=== PATIENT | female | born 1990 | race Caucasian/White ===

== ENCOUNTER 2018-12-21 10:16 | Emergency (ER) | payer OTHER, MEDICAID, SELFPAY ==
[2018-12-21 10:24] VITALS: BP 110/76; PULSE 70; RESP 18; TEMP 36.9; O2SAT 100; BMI 24.3
--- NOTE | 2018-12-21 11:47 | ED_ITS ---
HPI - Dizziness General Chief Complaint: Dizziness Stated Complaint: head spinning last night Time Seen by Provider: 12/21/18 10:34 Source: patient Mode of arrival: ambulatory Limitations: no limitations History of Present Illness HPI Narrative: Patient comes [facility] department complaining of dizziness, which she clarifies to be a spinning, moving sensation, which started last week. Patient states that she 1st noticed it when she was staying at a hotel last week, and got up to a standing position after having been laying on the bed. She states she felt as though she was spinning and that it took a few minutes for the sensation a calm down. However, patient was able to get around without difficulty after that. Every time she would do a sudden movement, though, she would have a spinning sensation again. After couple of days, the symptoms seem to get better, but yesterday, she was bending down to picking tech her dog's water dish, when she stood, she suddenly felt the same spinning sensation. Patient states she felt a little nauseated but did not vomit. She denies recent head injury. No fevers or chills. No visual changes or other neurologic deficits. No headache currently, the patient does note she had a headache a couple of days ago. Prior to last week, the patient denies ever having had any sort of issues with vertigo. She states she is otherwise healthy. No history of diabetes or thyroid issues. No cardiac issues. Patient does not use any substances. No medications. No recent vomiting or diarrhea. No recent viral syndrome of any kind. No other complaints at this time. Patient states she is not currently dizzy sitting in the bed, but that if she tries to move herself up into a s itting position suddenly, it will cause dizziness. Related Data Previous Rx's Medication Instructions Recorded meclizine 25 mg PO TID PRN #21 tab 12/21/18 Allergies Allergy/AdvReac Type Severity Reaction Status Date / Time latex Allergy Verified 12/21/18 10:57 Penicillins Allergy Verified 12/21/18 10:57 Review of Systems Review of Systems ROS Unobtainable: All systems reviewed & are unremarkable except as noted in HPI and below Constitutional Constitutional: Denies chills, Denies fatigue, Denies fever(s), Denies frequent falls, Denies lethargy and Denies weakness Eyes Eyes: Denies change in vision, Denies eye discharge, Denies irritation and Denies loss of vision ENT Ears, Nose, Mouth, and Throat: Denies change in voice, Reports vertigo, Reports dizziness, Denies neck pain, Denies sore throat and Denies throat swelling Cardiovascular Cardiovascular: Denies chest pain, Denies irregular heart rhythm, Denies lightheadedness, Denies palpitations, Denies dyspnea, Denies dyspnea on exertion and Denies orthopnea Respiratory Respiratory: Denies cough, Denies dyspnea, Denies dyspnea on exertion and Denies wheezing Gastrointestinal Gastrointestinal: Denies abdominal pain, Denies change in bowel habits, Denies diarrhea, Denies nausea and Denies vomiting Genitourinary Genitourinary: Denies hematuria, Denies flank pain, Denies urinary incontinence and Denies urinary urgency Musculoskeletal Musculoskeletal: Denies back pain, Denies muscle weakness, Denies neck pain, Denies numbness and Denies tingling Integumentary/Breasts Skin/Breast: Denies pruritus, Denies erythema, Denies rash and Denies wounds Neurologic Neurologic: Denies behavioral changes, Denies confusion, Reports vertigo, Reports dizziness, Denies frequent falls, Denies loss of vision, Denies numb ness, Denies tingling and Denies weakness Psychiatric Psychiatric: Denies anxiety, Denies behavioral changes, Denies confusion, Denies depression, Denies homicidal ideation and Denies suicidal ideation Endocrine Endocrine: Denies fatigue, Denies flushing and Denies palpitations Hematologic/Lymphatic Hematologic/Lymphatic: Denies easy bruising Allergic/Immunologic Allergic/Immunologic: Denies urticaria, Denies throat swelling and Denies whee zing [facility] Medical History Healthy adult (Acute) Surgical History No pertinent past surgical history (Acute) Social History Smoking Status: Never smoker Social History Smoking Status: Never smoker Exam Initial Vital Signs Initial Vital Signs: Vital Signs Temperature 98.5 F 12/21/18 10:24 Pulse Rate 70 12/21/18 10:24 Respiratory Rate 18 12/21/18 10:24 Blood Pressure 110/76 12/21/18 10:24 Pulse Oximetry 100 12/21/18 10:24 Const General: cooperative and well developed Nutritional Appearance: well nourished Orientation: alert, awake, oriented x3 and not confused [facility] Head: normocephalic and atraumatic Ears: external ears normal and TM's normal bilaterally Nose: external nose normal and No nasal discharge Face and sinus: sinuses nontender, face symmetric, no sinus tenderness and No dry mucous membranes Mouth: oral mucosae normal and moist mucous membranes Teeth and gingiva: dentition normal Throat: tonsils normal and uvula midline Eyes General: appearance normal, both eyes and all related structures Eyelids: eyelids normal Conjunctivae: conjunctivae normal Sclera: sclerae normal Pupils: PERRL EOM: EOM intact bilaterally Neck Neck: normal visual inspection, trachea midline, No lymphadenopathy, No midline deformity and No JVD Lymphatic: No lymphedema Chest Chest: normal inspection of the chest Resp Effort & Inspection: normal respiratory effort, able to speak in complete sentences, no respiratory distress and no use of accessory muscles Auscultation: clear to auscultation bilaterally, no rales, no rhonchi and no wheezes Cardio Rate: regular rate Rhythm: regular rhythm Heart Sounds: no click, no gallops, no murmurs and no rubs Pulses: normal peripheral pulses GI Inspection: non-distended Palpation: soft, no hepatosplenomegaly, No guarding, No pulsatile mass and No tender Auscultation: normal bowel sounds Back/Spine/Pelvis Back: No CVA tenderness Cervical Spine: cervical ROM normal and No pain with cervical ROM Thoracic/Lumbar Spine: thoracic and lumbar spine normal to inspection Skin General: no rashes or lesions noted, No jaundice and No petechiae Neuro General: alert, oriented x3, gait normal and no focal motor deficits Speech: speech normal Extrem General: full ROM, no clubbing, cyanosis or edema, no pedal edema and no calf tenderness Psych Appearance: well kempt Mental Status: mental status grossly normal Attitude: cooperative Thought Content: normal and suicidality Judgment: judgment good Course Course Course Narrative: Patient was able to ambulate to the bathroom on her own with out assistance. She had driven to the emergency department, so she could not be given the dose of meclizine that I wished to give her here. She was worked up with laboratory studies, which were found to be unremarkable. I did not feel head CT was indicated at this time, as the patient seemed to have clear-cut peripheral vertigo. I have discussed the potential causes of vertigo with the patient, as well as the treatment. I expect this to be a self-limited condition, but if the patient's symptoms continue for more than a week, she should follow up with her primary care physician. We have discussed the usual indications for return. I will give her prescription for meclizine as an outpatient Orders Ordered: Discontinued Medications Meclizine HCl (Antivert) 50 mg PO NOW ONE Stop: 12/21/18 11:47 Last Admin: 12/21/18 12:22 Dose: Not Given Documented by: SCANAPO Vital Signs Vital signs: Vital Signs - 8 hr 12/21/18 10:24 Temperature 98.5 F Pulse Rate 70 Respiratory Rate 18 Blood Pressure 110/76 Pulse Oximetry 100 MDM - Dizziness Medical Records Attestation: I reviewed the patient's medical records. Lab Data Attestation: I reviewed the patient's lab results. Result diagrams: 12/21/18 12:13 12/21/18 12:13 Labs: Lab Results 12/21/18 12/21/18 Range/Units 12:13 12:13 WBC 5.7 (4.5-11.0) X10^3/uL RBC 4.06 (4.0-5.2) X10^6/uL Hgb 12.0 (12.0-16.0) g/dL Hct 36.0 (36-46) % MCV 88.8 (80-100) fL MCH 29.6 (26-34) PG MCHC 33.3 (30-36) % RDW 14.1 (11.6-14.8) % Plt Count 396 (150-400) X10^3/uL Neut % (Auto) 60.4 (50-75) % Lymph % (Auto) 27.6 (25-40) % [place] % (Auto) 9.2 (3-14) % Eos % (Auto) 2.1 (2-4) % Baso % (Auto) 0.7 (0-2) % Neut # (Auto) 3400 (1086-7147) /uL Lymph # (Auto) 1600 (9617-0918) /uL [place] # (Auto) 500 (0-900) /uL Eos # (Auto) 100 (0-450) /uL Baso # (Auto) 0 (0-100) /uL Sodium 139 (137-145) mmol/L Potassium 4.2 (3.4-5.1) mmol/L Chloride 103 (98-107) mmol/L Carbon Dioxide 28 (22-32) mmol/L BUN 10 (7-17) mg/dL Creatinine 0.50 L (0.52-1.04) mg/dL Estimated GFR > 60.0 (>60) mL/min BUN/Creatinine Ratio 20.0 (6-22) Glucose 97 (70-100) mg/dL Calcium 9.3 (8.4-10.2) mg/dL Total Bilirubin 0.9 (0.2-1.3) mg/dL AST 25 (14-36) IU/L ALT 12 (9-52) IU/L Alkaline Phosphatase 41 (38-126) U/L Total Protein 7.2 (6.3-8.2) g/dL Albumin 4.3 (3.5-5.0) g/dL Globulin 2.9 (1.7-4.1) g/dL Albumin/Globulin Ratio 1.5 (1.0-2.8) ECG Data Attestation: I personally reviewed and interpreted this ECG as follows: (See below) Interpretation: Twelve lead EKG performed December 21, 2018 at 10:25 a.m., as follows: Regular ventricular rhythm with a rate of 61 beats per minute CO interval 154 milliseconds QRS duration 87 millisecond QTC interval [address] T wave changes No ectopy Interpretation: Normal sinus rhythm; no signs of acute ischemia; normal EKG as interpreted by EDMD. Discharge Plan Departure Patient Disposition: Home Clinical Impression: Benign paroxysmal positional vertigo Qualifiers: Laterality: unspecified laterality Qualified Code(s): H81.10 - Benign paroxysmal vertigo, unspecified ear Discharge Date/Time: 12/21/18 13:31 Instructions: DI for Vertigo Activity Restrictions/Additional Instructions: Your labs look good. Your symptoms do not indicate a source of her vertigo whchastity h is in the brain. Most likely, your symptoms are coming from the nerves of the inner ear. Most of the time, these symptoms are self-limited, and will go away on their own. Please take the medication for vertigo, as needed, and drink plenty of fluids. Please follow up with your primary care physician, as needed. Prescriptions: New meclizine 25 mg tablet 25 mg PO TID PRN (Reason: dizziness) Qty: 21 RF: 0 Referrals: [facility] [Provider Group] Stand Alone Forms: Work Release Note
[2018-12-21 12:22] LABS: Add Manual Diff / Slide Review NO; Basophils Absolute Auto 0 /uL (0-100); Basophils Percent Auto 0.7 % (0-2); Eosinophils Absolute Auto 100 /uL (0-450); Eosinophils Percent Auto 2.1 % (2-4); Lymphocytes Absolute Auto 1600 /uL (1100-4500); Lymphocytes Percent Auto 27.6 % (25-40); Mean Corpuscular HGB Conc 33.3 % (30-36); Mean Corpuscular Hemoglobin 29.6 PG (26-34); Mean Corpuscular Volume 88.8 fL (80-100); Monocytes Absolute Auto 500 /uL (0-900); Monocytes Percent Auto 9.2 % (3-14); Neutrophils Absolute Auto 3400 /uL (1500-7000); Neutrophils Percent Auto 60.4 % (50-75); Platelet Count 396 X10^3/uL (150-400); Red Blood Cell Count 4.06 X10^6/uL (4.0-5.2); Red Cell Distribution Width 14.1 % (11.6-14.8); White Blood Cell Count 5.7 X10^3/uL (4.5-11.0)
[2018-12-21 12:24] VITALS: BP 107/68; PULSE 61; RESP 17; O2SAT 100
[2018-12-21 12:30] LABS: Alanine Aminotransferase 12 IU/L (9-52); Albumin 4.3 g/dL (3.5-5.0); Albumin Globulin Ratio 1.5 (1.0-2.8); Alkaline Phosphatase 41 U/L (38-126); Aspartate Aminotransferase 25 IU/L (14-36); Bilirubin Total 0.9 mg/dL (0.2-1.3); Blood Urea Nitrogen 10 mg/dL (7-17); Calcium 9.3 mg/dL (8.4-10.2); Carbon Dioxide 28 mmol/L (22-32); Chloride 103 mmol/L (98-107); Estimated Glomerular Filt Rate > 60.0 mL/min (>60); Globulin 2.9 g/dL (1.7-4.1); Glucose 97 mg/dL (70-100); HEMOLYSIS < 15 (0-50); Potassium 4.2 mmol/L (3.4-5.1); Sodium 139 mmol/L (137-145); Total Protein 7.2 g/dL (6.3-8.2)
== END 2018-12-21 13:31 | disposition home or self-care (01) ==
PROVIDERS: Emergency Provider Emergency Medicine
DX: H81.10 Benign paroxysmal vertigo, unspecified ear (principal)
CPT/HCPCS: 36415; 80053; 85025; 93005; 93010; 99282; 99284

== ENCOUNTER 2020-08-06 23:10 | Observation (INO) | payer OTHER, MEDICAID, SELFPAY ==
--- NOTE | 2020-08-06 23:13 | ED.ABDPAIN ---
HPI - Abdominal Pain General Chief Complaint: Headache Stated Complaint: right lower abd pain, nausea, dizzy short of breat Time Seen by Provider: 08/06/20 23:12 Source: patient and family Mode of arrival: Ambulatory Limitations: no limitations History of Present Illness HPI narrative: 29-year-old female fully immunized, nonsmoker with noncontributory medical history presents with her mother and a chief complaint of gradually worsening, severe right lower quadrant pain over the course of the day. She was in her normal state of health earlier in the day and since about noon she has had increasing abdominal pain which has settled in the right lower quadrant and seems to radiate up to her right flank. Her pain is significantly worse with any motion or bumps in the road when driving in. She is nauseated but denies any vomiting. She denies headache, sore throat, chest pain or trouble breathing. She denies any dysuria, frequency or urgency. She denies vaginal bleeding or discharge. She has never had any similar symptoms MD complaint: abdominal pain Onset (ago): hour(s) Pain Consistency: constant Location: RLQ Severity: severe Severity scale (1-10): 10 Quality: cramping, stabbing and aching Radiation: R flank Relieving factors: rest Exacerbating factors: movement Associated symptoms: nausea Related Data Previous Rx's Medication Instructions Recorded meclizine 25 mg PO TID PRN #21 tab 12/21/18 Allergies Allergy/AdvReac Type Severity Reaction Status Date / Time latex Allergy Verified 12/21/18 10:57 Penicillins Allergy Verified 12/21/18 10:57 Review of Systems Constitutional Constitutional: Denies chills, Denies fatigue, Denies fever(s), Denies frequent falls, Denies lethargy and Denies weakness Eyes Eyes: Denies change in vision, Denies eye discharge, Denies irritation and Denies loss of vision ENT Ears, Nose, Mouth, and Throat: Denies change in voice, Denies dizziness, Denies neck pain, Denies sore throat and Denies throat swelling Cardiovascular Cardiovascular: Denies chest pain, Denies irregular heart rhythm, Denies lightheadedness, Denies palpitations, Denies dyspnea, Denies dyspnea on exertion and Denies orthopnea Respiratory Respiratory: Denies cough, Denies dyspnea, Denies dyspnea on exertion and Denies wheezing Gastrointestinal Gastrointestinal: Reports abdominal pain, Denies change in bowel habits, Denies diarrhea, Reports nausea and Denies vomiting Musculoskeletal Musculoskeletal: Denies neck pain and Denies numbness Integumentary/Breasts Skin/Breast: Denies pruritus, Denies erythema, Denies rash and Denies wounds Neurologic Neurologic: Denies behavioral changes, Denies confusion, Denies dizziness, Denies frequent falls, Denies loss of vision, Denies numbness and Denies weakness Psychiatric Psychiatric: Denies anxiety, Denies behavioral changes, Denies confusion, Denies depression, Denies homicidal ideation and Denies suicidal ideation Endocrine Endocrine: Denies fatigue, Denies flushing and Denies palpitations Hematologic/Lymphatic Hematologic/Lymphatic: Denies easy bruising Allergic/Immunologic Allergic/Immunologic: Denies urticaria, Denies throat swelling and Denies wheezing Patient History Medical History (Updated 08/07/20 @ 01:50 by Jr Arroyo DO) Healthy adult Surgical History No pertinent past surgical history Social History Smoking Status: Never smoker Smoking Status: Never smoker alcohol intake frequency: 0-2 drinks per day Substance Use Type: does not use Exam Narrative Exam Narrative: GENERAL: [29] year old patient appears stated age. Well-nourished, well-developed patient, in mild distress. Obviously uncomfortable, rubbing her right abdomen, holding an emesis bag HEAD: Atraumatic. Normocephalic. EYES: Pupils equal round and reactive. Extraocular motions intact. No scleral icterus. No injection or drainage. ENT: Nose without bleeding, purulent drainage. Throat without erythema, tonsillar hypertrophy or exudate. Airway patent. NECK: Trachea midline. Non tender CARDIOVASCULAR: Regular rate and rhythm without murmurs, gallops, or rubs. RESPIRATORY: Clear to auscultation. Breath sounds equal bilaterally. No wheezes, rales, or rhonchi. GASTROINTESTINAL: Abdomen soft, severe tenderness to palpation of right lower quadrant, nondistended. Negative Rovsing's EXTREMITIES: No edema or joint tenderness. BACK: Nontender without deformity or crepitance. No flank tenderness. NEURO: AOx3. SKIN: No rash or erythema of visible areas Initial Vital Signs Initial Vital Signs: Vital Signs Temperature 98.7 F 08/06/20 23:24 Pulse Rate 90 08/06/20 23:24 Respiratory Rate 18 08/06/20 23:24 Blood Pressure 118/80 08/06/20 23:24 Pulse Oximetry 100 08/06/20 23:24 Course Orders Ordered: ED Orders 08/06/20 23:19 CT abdomen pelvis w con Stat 08/06/20 23:20 Complete Blood Count AUTO DIFF Stat Comprehensive Metabolic Panel Stat Lipase Stat 08/07/20 00:26 US pelvic complete Stat COVID19 - ADMIT ([facility]ARD/[facility] swab/PCR) Stat 08/07/20 01:23 Hemoglobin and Hematocrit Stat Sodium Chloride (Normal Saline 0.9%) 1,000 mls @ 150 mls/hr IV CONT ESMER Last Admin: 08/07/20 01:36 Dose: 150 mls/hr Documented by: YOMI Discontinued Medications Hydromorphone HCl (Hydromorphone 0.5 Mg Inj) 0.5 mg IV NOW ONE Stop: 08/06/20 23:19 Last Admin: 08/06/20 23:29 Dose: 0.5 mg Documented by: ANNE-MARIE Hydromorphone HCl (Hydromorphone 0.5 Mg Inj) 0.5 mg IV NOW ONE Stop: 08/06/20 23:53 Last Admin: 08/06/20 23:57 Dose: 0.5 mg Documented by: ANNE-MARIE Hydromorphone HCl (Hydromorphone 0.5 Mg Inj) 0.5 mg IV NOW ONE Stop: 08/07/20 00:47 Last Admin: 08/07/20 01:03 Dose: 0.5 mg Documented by: ANNE-MARIE Hydromorphone HCl (Hydromorphone 0.5 Mg Inj) 0.5 mg IV NOW ONE Stop: 08/07/20 01:50 Last Admin: 08/07/20 01:54 Dose: 0.5 mg Documented by: YOMI Hydromorphone HCl (Hydromorphone 0.5 Mg Inj) 0.5 mg IV NOW ONE Stop: 08/07/20 01:50 Sodium Chloride (Normal Saline 0.9%) 1,000 mls @ 1,000 mls/hr IV BOLUS ONE Stop: 08/07/20 00:17 Last Infusion: 04/28/21 01:43 Dose: 0 mls/hr Documented by: Admin: 08/06/20 23:29 Dose: 1,000 mls/hr Documented by: ANNE-MARIE Ondansetron HCl (Ondansetron 4 Mg/2 Ml Inj) 4 mg IV NOW ONE Stop: 08/06/20 23:19 Last Admin: 08/06/20 23:28 Dose: 4 mg Documented by: ANNE-MARIE Consultations Consultation #1: And discussed with on-call gynecology (Dr. Carballo) who request patient be admitted, kept NPO with IV fluids and pain control, likely OR this morning Vital Signs Vital signs: Vital Signs - 8 hr 08/06/20 23:24 Temperature 98.7 F Pulse Rate 90 Respiratory Rate 18 Blood Pressure 118/80 Pulse Oximetry 100 MDM - Abdominal Pain Lab Data Result diagrams: 08/07/20 01:23 08/06/20 23:20 Labs: Lab Results 08/06/20 08/06/20 08/07/20 Range/Units 23:20 23:20 01:23 WBC 15.9 H (4.5-11.0) X10^3/uL RBC 3.84 L (4.0-5.2) X10^6/uL Hgb 11.4 L 10.6 L (12.0-16.0) g/dL Hct 33.5 L 31.9 L (36-46) % MCV 87.4 (80-100) fL MCH 29.6 (26-34) PG MCHC 33.9 (30-36) % RDW 13.5 (11.6-14.8) % Plt Count 413 H (150-400) X10^3/uL Neut % (Auto) 75.3 H (50-75) % Lymph % (Auto) 16.7 L (25-40) % [place] % (Auto) 6.5 (3-14) % Eos % (Auto) 1.0 L (2-4) % Baso % (Auto) 0.5 (0-2) % Neut # (Auto) 28441 H (6679-1996) /uL Lymph # (Auto) 2600 (3882-3452) /uL [place] # (Auto) 1000 H (0-900) /uL Eos # (Auto) 200 (0-450) /uL Baso # (Auto) 100 (0-100) /uL Sodium 139 (137-145) mmol/L Potassium 4.2 (3.4-5.1) mmol/L Chloride 105 (98-107) mmol/L Carbon Dioxide 24 (22-32) mmol/L BUN 10 (7-17) mg/dL Creatinine 0.67 (0.52-1.04) mg/dL Estimated GFR > 60.0 (>60) mL/min BUN/Creatinine Ratio 14.9 (6-22) Glucose 118 H (70-100) mg/dL Calcium 9.3 (8.4-10.2) mg/dL Total Bilirubin 0.3 (0.2-1.3) mg/dL AST 26 (14-36) IU/L ALT 14 (<35) IU/L Alkaline Phosphatase 47 (38-126) U/L Total Protein 7.5 (6.3-8.2) g/dL Albumin 4.5 (3.5-5.0) g/dL Globulin 3.0 (1.7-4.1) g/dL Albumin/Globulin Ratio 1.5 (1.0-2.8) Lipase 96 (23-300) U/L Point of care testing: Point of Care Testing Test Results Negative Urine Dip Bedside Urine Glucose Negative Bedside Urine Bilirubin - Negative Bedside Urine Ketone - Negative Urine Specific [place] 1.015 Bedside Urine Occult Blood - Negative Bedside Urine pH 6 Bedside Urine Protein - Negative Bedside Urine Urobilinogen - Negative Bedside Urine Nitrite - Negative Bedside Urine Leukocytes - Negative Esterase Imaging Data CT scan - abdomen/pelvis: Radiologist's Impression: Heterogeneous mixed density soft tissue abnormalities in the right pelvis with hemorrhagic fluid. Findings may represent hemorrhagic right ovarian cyst US - RECOVERY COORDINATOR: Radiologist's Impression: Enlarged right ovary with complex in brother which is marked mass, possible hemorrhagic cyst with intact arterial and venous spectral Doppler waveforms to rule out a complete ovarian torsion Discharge Plan Departure Patient Disposition: Admitted as Observation Clinical Impression: Hemorrhagic ovarian cyst Admit Date/Time: 08/07/20 01:58 Admit Provider: Stacey Carballo
--- NOTE | 2020-08-06 23:19 | DI.CT.S_ITS ---
PROCEDURE: CT ABDOMEN PELVIS W CON INDICATIONS: severe right lower quadrant pain TECHNIQUE: After the administration of intravenous contrast, 5 mm thick sections acquired from the diaphragm to the symphysis. 5 mm coronal and sagittal reformats were acquired. For radiation dose reduction, the following was used: automated exposure control, adjustment of mA and/or kV according to patient size. COMPARISON: None. FINDINGS: Image quality: Excellent. ABDOMEN: Lung bases: Lung bases are clear. Heart size is normal. Solid organs: Liver is normal in size and enhancement. Gallbladder is normal. Biliary system is non dilated. Pancreas enhances normally. Spleen is normal in size and enhancement. No adrenal nodules. Kidneys demonstrate normal size and enhancement, without hydronephrosis. There are non obstructive right renal calculi. Peritoneum and bowel: Appendix is not identified. Bowel loops demonstrate normal caliber. Possible mild thickening of transverse colon. There is a lfxhn-wa-kitwsgoe amount of free fluid, which is evident around the spleen, inferior margin of liver, the right pericolic gutter and within the cul-de-sac. No free air. Nodes and vessels: No retroperitoneal or mesenteric adenopathy by size criteria. Aorta and inferior vena cava are normal in size. Miscellaneous: No ventral hernias. PELVIS: Genitourinary: There is a 4.6 x 6.4 cm masslike area in the right adnexa which demonstrates heterogeneous enhancement. In the central portion of the right ovary, there is a 1.7 x 2.9 cm cyst with peripheral enhancement. There is a 1.5 cm peripheral enhancing cyst in the left ovary, most likely a corpus luteum. Bladder wall thickness is normal. Miscellaneous: No inguinal hernias or adenopathy. Bones: No suspicious bony lesions. No vertebral body compression fractures. IMPRESSION: 1. Appendix is not identified. No definitive CT findings to suggest acute appendicitis. 2. A 4.6 x 6.4 cm heterogeneous mass-like structure in the right adnexa, which contains a 1.7 x 2.9 cm cyst with peripheral enhancement. It is most likely arising from the right ovary. Differential diagnoses include a complex ovarian cyst, tubo-ovarian abscess, ovarian torsion and ovarian neoplasm. Recommend pelvic ultrasound for further evaluation. 3. There is vujof-id-ehlvdzzt amount of free fluid in the peritoneal cavity. 4. Possible mild thickening of the transverse colon. Differential diagnosis include artifact versus mild colitis. 5. Small nonobstructive right renal calculi. No significant discrepancy with the date night caregiver radiology preliminary report. Dictated by: William Waite M.D. on 08/07/2020 at 8:20 Approved by: William Waite M.D. on 08/07/2020 at 8:47
[2020-08-06 23:24] VITALS: BP 118/80; PULSE 90; RESP 18; TEMP 37.1; O2SAT 100; BMI 25.0
[2020-08-06 23:28] LABS: Add Manual Diff / Slide Review NO; Basophils Absolute Auto 100 /uL (0-100); Basophils Percent Auto 0.5 % (0-2); Eosinophils Absolute Auto 200 /uL (0-450); Hematocrit 33.5 % (36-46); Hemoglobin 11.4 g/dL (12.0-16.0); Lymphocytes Absolute Auto 2600 /uL (1100-4500); Lymphocytes Percent Auto 16.7 % (25-40); Mean Corpuscular HGB Conc 33.9 % (30-36); Mean Corpuscular Hemoglobin 29.6 PG (26-34); Mean Corpuscular Volume 87.4 fL (80-100); Monocytes Absolute Auto 1000 /uL (0-900); Monocytes Percent Auto 6.5 % (3-14); Neutrophils Absolute Auto 12000 /uL (1500-7000); Neutrophils Percent Auto 75.3 % (50-75); Platelet Count 413 X10^3/uL (150-400); Red Blood Cell Count 3.84 X10^6/uL (4.0-5.2); Red Cell Distribution Width 13.5 % (11.6-14.8); White Blood Cell Count 15.9 X10^3/uL (4.5-11.0)
[2020-08-06] MEDS: ONDANSETRON 4 MG/2 ML INJ IV (23:28)
[2020-08-06] MEDS: SODIUM CHLORIDE 0.9% 1,000 ML 1000 ML IV (23:29)
[2020-08-06] MEDS: HYDROMORPHONE 0.5 MG INJ IV ×2 (23:29→23:57)
[2020-08-06 23:36] LABS: Alanine Aminotransferase 14 IU/L (<35); Albumin 4.5 g/dL (3.5-5.0); Albumin Globulin Ratio 1.5 (1.0-2.8); Alkaline Phosphatase 47 U/L (38-126); Aspartate Aminotransferase 26 IU/L (14-36); BUN Creatinine Ratio 14.9 (6-22); Bilirubin Total 0.3 mg/dL (0.2-1.3); Blood Urea Nitrogen 10 mg/dL (7-17); Calcium 9.3 mg/dL (8.4-10.2); Carbon Dioxide 24 mmol/L (22-32); Chloride 105 mmol/L (98-107); Estimated Glomerular Filt Rate > 60.0 mL/min (>60); Glucose 118 mg/dL (70-100); HEMOLYSIS < 15 (0-50); Lipase 96 U/L (23-300); Potassium 4.2 mmol/L (3.4-5.1); Sodium 139 mmol/L (137-145); Total Protein 7.5 g/dL (6.3-8.2)
[2020-08-07] VITALS (15 sets, daily range): BP systolic 96–125; BP diastolic 53–78; PULSE 69–92; RESP 12–20; TEMP 36.2–37.1; O2SAT 95–100; BMI 26.5
--- NOTE | 2020-08-07 00:26 | DI.US.S_ITS ---
PROCEDURE: US PELVIC COMPLETE INDICATIONS: severe RLQ pain, possible hemorrhagic cyst per CT TECHNIQUE: Real-time scanning was performed of the pelvic organs, with image documentation. Additional endovaginal scanning was necessary due to incomplete visualization of the adnexal and endometrial structures by transabdominal scanning. COMPARISON: None. FINDINGS: Uterus: Uterus is normal in size at 10.4 x 5.5 x 7.1 cm. The endometrium measures 1.1 mm in combined thickness. Ovaries: Right ovary measures 7.4 x 4.3 x 5.8 centimeters. There is a 6.5 x 3.3 x 5.7 centimeter complex mass adjacent to the right ovary. There is a 1.8 x 1.5 by 1.6 centimeter thick walled slightly complex right ovarian cyst. Left ovary measures 3.9 x 1.4 x 3.4 centimeters. Left ovary is sonographically normal. Color Doppler evaluation demonstrates normal vascular flow in the ovaries bilaterally. Other: Moderate amount of complex fluid noted in the pelvis. IMPRESSION: 1. Uterus is sonographically normal. 2. Left ovary is sonographically normal. 3. Complex mass noted adjacent to the right ovary with small thick walled right ovarian cyst and moderate amount of complex fluid in the pelvis. Findings likely represent pelvic hematoma/hemorrhage which could be secondary to ruptured hemorrhagic cyst or ectopic . 4. No ovarian torsion. Please note ultrasound cannot exclude intermittent torsion. Findings discussed with Dr. Javier Mejia on August 07, 2020. Patient reportedly had a negative test. Dictated by: Angela Rodriguez MD, PhD on 08/07/2020 at 8:16 Approved by: Angela Rodriguez MD, PhD on 08/07/2020 at 8:34
[2020-08-07] MEDS: HYDROMORPHONE 0.5 MG INJ IV ×5 (01:03→07:10)
[2020-08-07 01:32] LABS: Hematocrit 31.9 % (36-46); Hemoglobin 10.6 g/dL (12.0-16.0)
[2020-08-07] MEDS: SODIUM CHLORIDE 0.9% 1,000 ML 150 ML IV ×2 (01:36→09:03)
[2020-08-07] MEDS: ONDANSETRON 4 MG/2 ML INJ IV ×3 (03:11→07:42)
[2020-08-07 04:22] LABS: COVID19 - ADMIT (NP swab/PCR) Negative (Negative)
[2020-08-07 06:10] LABS: Hematocrit 29.5 % (36-46); Hemoglobin 9.8 g/dL (12.0-16.0)
--- NOTE | 2020-08-07 07:55 | PM.HP.1 ---
History of Present Illness History of Present Illness Date Patient Seen: 08/07/20 Time Patient Seen: 07:55 Chief complaint: right lower abd pain, nausea, dizzy short of breat Narrative: Patient is a 29-year-old 4 para 1 who presented to the emergency department with acute onset of right lower quadrant pain. She was found to have a large cyst on the right ovary with free fluid in the pelvis. Hematocrit dropped from 33-29 in the emergency department. Patient History Medical History (Updated 08/07/20 @ 01:50 by Jr Arroyo DO) Healthy adult Surgical History No pertinent past surgical history Family & Social History Social History: household members children Prior Living Arrangements House Safety & Behavioral: Feels Safe in Current Yes Environment Been Physically Hurt or No Threatened By a Person Suicidal Ideation Description None Suicide Plan Description No Plan Tobacco & Substance use: Smoking Status Never smoker alcohol intake frequency 0-2 drinks per day Substance Use Type does not use Meds Home Medications and Allergies Home Medications Medication Instructions Recorded Confirmed Type meclizine 25 mg PO TID PRN #21 tab 12/21/18 Rx Allergies Allergy/AdvReac Type Severity Reaction Status Date / Time latex Allergy Verified 12/21/18 10:57 Penicillins Allergy Verified 12/21/18 10:57 Exam Vital Signs (past 8 hours): - 08/07/20 01:00 08/07/20 02:05 08/07/20 02:50 Temperature Pulse Rate 76 74 76 Respiratory Rate 18 18 16 Blood Pressure 113/66 110/62 119/68 Pulse Oximetry 98 98 98 08/07/20 03:55 Temperature 97.6 F Pulse Rate 83 Respiratory Rate 18 Blood Pressure 125/68 Pulse Oximetry 99 Oxygen Delivery Method Room Air Narrative Exam Narrative: Generally: Patient lying in bed, tearful, no acute distress Lungs: Clear to auscultation bilaterally Cardiovascular: Regular rate and rhythm Abdomen: Soft and flat. Good bowel sounds in all 4 quadrants. She does have guarding in the right lower quadrant. Extremities: No edema CT and ultrasound show a right ovarian cyst that is ruptured. Objective Labs Result Diagrams: 08/07/20 05:55 08/06/20 23:20 Labs: Laboratory Results - last 24 hr 08/06/20 08/06/20 08/07/20 23:20 23:20 01:23 WBC 15.9 H RBC 3.84 L Hgb 11.4 L 10.6 L Hct 33.5 L 31.9 L MCV 87.4 MCH 29.6 MCHC 33.9 RDW 13.5 Plt Count 413 H Neut % (Auto) 75.3 H Lymph % (Auto) 16.7 L [place] % (Auto) 6.5 Eos % (Auto) 1.0 L Baso % (Auto) 0.5 Neut # (Auto) 11517 H Lymph # (Auto) 2600 [place] # (Auto) 1000 H Eos # (Auto) 200 Baso # (Auto) 100 Sodium 139 Potassium 4.2 Chloride 105 Carbon Dioxide 24 BUN 10 Creatinine 0.67 Estimated GFR > 60.0 BUN/Creatinine Ratio 14.9 Glucose 118 H Calcium 9.3 Total Bilirubin 0.3 AST 26 ALT 14 Alkaline Phosphatase 47 Total Protein 7.5 Albumin 4.5 Globulin 3.0 Albumin/Globulin Ratio 1.5 Lipase 96 Nasal Screen MRSA (PCR) SARS-CoV-2 (PCR) Blood Type Antibody Screen 08/07/20 08/07/20 08/07/20 03:35 04:05 05:55 WBC RBC Hgb 9.8 L Hct 29.5 L MCV MCH MCHC RDW Plt Count Neut % (Auto) Lymph % (Auto) [place] % (Auto) Eos % (Auto) Baso % (Auto) Neut # (Auto) Lymph # (Auto) [place] # (Auto) Eos # (Auto) Baso # (Auto) Sodium Potassium Chloride Carbon Dioxide BUN Creatinine Estimated GFR BUN/Creatinine Ratio Glucose Calcium Total Bilirubin AST ALT Alkaline Phosphatase Total Protein Albumin Globulin Albumin/Globulin Ratio Lipase Nasal Screen MRSA (PCR) Negative for mrsa SARS-CoV-2 (PCR) Negative Blood Type Antibody Screen 08/07/20 05:55 WBC RBC Hgb Hct MCV MCH MCHC RDW Plt Count Neut % (Auto) Lymph % (Auto) [place] % (Auto) Eos % (Auto) Baso % (Auto) Neut # (Auto) Lymph # (Auto) [place] # (Auto) Eos # (Auto) Baso # (Auto) Sodium Potassium Chloride Carbon Dioxide BUN Creatinine Estimated GFR BUN/Creatinine Ratio Glucose Calcium Total Bilirubin AST ALT Alkaline Phosphatase Total Protein Albumin Globulin Albumin/Globulin Ratio Lipase Nasal Screen MRSA (PCR) SARS-CoV-2 (PCR) Blood Type O Positive Antibody Screen Negative Assessment & Plan Assessment & Plan narrative: Assessment: 29-year-old 4 para 1 with a right ovarian cyst that is ruptured Plan: Diagnostic laparoscopy with removal of the cyst and aspiration of blood in the pelvis The risks, benefits, and alternatives to the procedure were explained to the patient. The risks including bleeding, infection, injury to the bowel, bladder, or ureters. She understands these risks and agrees to proceed. A full par Q was held and consent form was signed. COVID-19 COVID-19 status: Negative Result date/Date tested (Pos, Neg/Pending): 08/07/20 Time Spent With Patient Time with patient: 15-24 minutes Quality VTE Deep Vein Thrombosis/Pulmonary Embolism Present on Admission: No
[2020-08-07] MEDS: METOCLOPRAMIDE 10 MG/2 ML INJ IV (08:56)
--- NOTE | 2020-08-07 11:31 | PC.NURSE ---
Addendum entered by Danielle Patel R.N. 08/07/20 13:49: Pt off unit to surgery at 1250. Original Note: Dr. Carballo present at pt bedside at shift change. Gave pt the ok to eat a light snack as long as she stopped eating by 0730. Plan originally was surgery after 1500. Pt ate a piece of toast with a scant amount of peanut butter and had a few sips of liquid. .Pt felt nauseated after eating, PRN Zofran administered. Pt ambulatory to the bathroom independently, but knows to call staff for unplugging IV pump from wall. NS at 150mls/hr running through a patent 18g in the right AC. Pt heart, lung, and bowel sounds within defined limits. Pt voiding with a slight increase in sharp abdominal pain post void and ambulation. Dr. Carballo paged at 0838 for a supplemental antiemetic since pt still feeling nauseated even after PRN Zofran given. Per MD, order a one time dose of Reglan IVP 10mg. Medication given to pt, pt symptoms subsided. Called around 0900 by OR and made aware that pt would be going to surgery at 1300 instead of original late afternoon time. Pt informed of this. Mother of pt at bedside.
--- NOTE | 2020-08-07 12:58 | CM.DANOTE ---
DCP Brief Assessment Patient is a 29 year old female who was admitted on 08/07/20 today for Right lower Abd Pain. Pt has [employer] for insurance and her PCP is not listed. EMR was reviewed. Per IMPLEMENTATION ADVISOR MD, pt with acute hemorratic cyst and surgery scheduled for today at 1300 as her crit was dropping significantly even just in the ER. Per RN, anticipates likely d/c home after surgery if pt remains stable. SW met very briefly bedside with pt and her mother and explained role and pt in pain and trying to sleep and confirm that she lives in [place] and mother is available for assist at d/c and supportive and pt is typically active and independent at baseline. Plan: SW to follow after surgical intervention this afternoon to confirm pt safe and stable for d/c home with mother assist and any further identified discharge planning needs. LUCY Call
[2020-08-07] MEDS: LACTATED RINGERS 1,000 ML 42 ML IV (13:05)
--- NOTE | 2020-08-07 13:23 | PM.PREOP ---
Pre-operative Note COVID-19 COVID-19 status: Negative Result date/Date tested (Pos, Neg/Pending): 08/07/20 Interval Note History & Physical reviewed/Exam performed by Physician: Yes Changes to H&P: No H&P completed within 30 days and has changed as indicated here:: 08/07/20
--- NOTE | 2020-08-07 13:59 | SUR.OPER ---
Lithotomy on padded OR bed, head on pillow, arms padded and tucked bilateral. Legs secured in padded yellow fins stirrups.
[2020-08-07] MEDS: BUPIVACAINE 0.5% W/ EPI (PF) 30 ML VIAL INJ (14:21)
--- NOTE | 2020-08-07 15:10 | PM.GYNOP.1 ---
Operative Date/Time/Diagnoses Date of procedure: 08/07/20 Time of procedure: 15:10 Pre-op diagnosis: Ruptured right ovarian cyst Blood in the pelvis Post-op diagnosis: same Procedure & Clinicians Procedure: Procedures Operation Date: 08/07/20 16:45 Actual Procedures Side Surgeon p Diagnostic Laparoscopy with irrigation and removal of clot Right Stacey Carballo MD Indications: Ruptured right ovarian cyst Free blood in the pelvis Surgeon: Stacey Carballo Anesthesia Type: General and Local Operative Notes Findings: 8 week size anteverted uterus Right ovary with area of rupture, not actively bleeding Normal left tube and ovary, normal right tube Normal liver and gallbladder 300cc of free blood/clot in the pelvis Closure Type: primary Specimen(s): none Applied: catheter (in and out) Estimated blood loss (mL): 5 Blood products transfused: none Procedure in detail: After informed consent was obtained, the patient was taken to the operating room where she was placed in the dorsal supine position. After adequate general endotracheal anesthesia was achieved, she was placed in the dorsal lithotomy position, and prepped and draped in the usual sterile fashion. A time-out was performed. A bivalve speculum was placed into the vagina and the anterior lip of the cervix grasped with a single-tooth tenaculum. Cervical os was sequentially dilated until the Zumi uterine manipulator could pass easily into the endometrial cavity. Single-tooth tenaculum was removed from the anterior lip of the cervix. The bivalve speculum was removed from the vagina. Attention was then turned to the abdomen where 6 cc of 0.5% Marcaine with epinephrine were injected in the umbilical fold. A 5 mm incision was made. The Veress needle was placed into the peritoneal cavity, and its placement confirmed by aspiration and drop test. The abdominal cavity was insufflated with 3.2 L of CO2. The Veress needle was removed, and a 5 mm trocar was placed without difficulty. Initial inspection of the pelvis and abdomen revealed approximately 300 cc of free blood in the pelvis. Two other incisions were made 4 cm lateral to the midline, at the level of the umbilicus. 6 cc of 0.5% Marcaine with epinephrine were injected before 5 mm incisions were made. Two 5 mm trocars were placed under direct visualization. The probe was used to move the bowel out of the way. The Zumi uterine manipulator was used to elevate the uterus. Suction irrigation was performed at the uterine bladder junction and in the posterior cul-de-sac of a large amount of blood. The ovaries were then examined. The right ovary had a small area of a cyst rupture. There was no active bleeding. The tubes were normal bilaterally. The left ovary was normal. The liver and gallbladder were examined and were normal. The appendix could not be visualized. The instruments were removed from the abdomen. The CO2 was allowed to escape. The incisions were repaired with 4-0 Monocryl in a subcuticular fashion. Steri-Strips, and Allevyn dressings were placed. The Zumi uterine manipulator was removed from the uterus. Sponge, lap, and instrument counts were correct x2. The patient tolerated the procedure well, and was taken to PACU in stable condition. Complications: none Post-operative Condition: stable Disposition: PACU Plan for aftercare: Home after recovery
[2020-08-07] MEDS: OXYCODONE/ACETAMINOPHEN 5/325 TABLET 1 TAB PO (15:13)
--- NOTE | 2020-08-07 18:47 | PC.NURSE ---
1735 Pt ready to discharge post-op, she has eaten, voided and is able to ambulate. Discharge instructions discussed with pt and mother, all questions answered. Patient dressed, PIV removed with catheter intact, pt assisted to wheelchair with all of her belongings. Pt taken to private car and assisted into car. No further patient contact at this time
== END 2020-08-07 17:35 | disposition home or self-care (01) ==
LOC: ED 08-07 01:50 → AC 08-07 01:58 → ICU 08-07 03:18
PROVIDERS: Admitting Provider Obstetrics & Gynecology; Emergency Provider Emergency Medicine; Visit Provider Obstetrics & Gynecology
PROC: (CPT 58662; principal; 2020-08-07 16:45)
DX: N83.291 Other ovarian cyst, right side (principal); Z20.822 Contact with and (suspected) exposure to COVID-19
CPT/HCPCS: 49322; 36415; 36592; 74177; 76830; 76856; 80053; 81003; 81025; 83690; 85014; 85018; 85025; 86850; 86900; 86901; 87635; 87797; 93005; 99284; C9803; G0378; J1100; J1170; J1885; J2250; J2405; J2704; J2765; J3010; Q9967

== ENCOUNTER 2020-12-27 08:26 | Emergency (ER) | payer OTHER, MEDICAID, SELFPAY ==
[2020-08-07 04:39] VITALS: BMI 26.5
[2020-12-27 08:42] VITALS: BP 108/69; PULSE 81; RESP 16; TEMP 36.9; O2SAT 100; BMI 25.0
--- NOTE | 2020-12-27 08:44 | DI.RAD.S_ITS ---
PROCEDURE: XR CHEST 2V INDICATIONS: COVID + SOB and chest tightness TECHNIQUE: 2 views of the chest were acquired. COMPARISON: None. FINDINGS: Surgical changes and devices: None. Lungs and pleura: Lungs are clear. No pleural effusions or pneumothorax. Mediastinum: Mediastinal contours are normal. Heart size is normal. Bones and chest wall: No suspicious bony abnormalities. Soft tissues appear unremarkable. IMPRESSION: No acute cardiopulmonary abnormality. Dictated by: Soham Tee M.D. on 12/27/2020 at 8:09 Approved by: Soham Tee M.D. on 12/27/2020 at 8:10
[2020-12-27 09:03] LABS: COVID19 -Nasal RAPID POSITIVE (Negative)
--- NOTE | 2020-12-27 09:11 | PC.NURSE ---
started feeling Ill on Wednesday had a home COVID test yesterday with positive results. Patient reports chest tightness, pain radiating into mid back. Headache with minimal relief from OTC. Unvaccinated
--- NOTE | 2020-12-27 09:22 | PC.NURSE ---
call centre supervisor back requesting medication for back pain, Dr Glaser aware. Tylenol ordered for pain
--- NOTE | 2020-12-27 09:24 | ED.URI ---
HPI - URI/Sore Throat General Chief Complaint: Upper Respiratory Symptoms Stated Complaint: poss covid, at home test positive Time Seen by Provider: 12/27/20 09:11 Source: patient Mode of arrival: Family Vehicle Limitations: no limitations History of Present Illness HPI Narrative: This is a 29-year-old unvaccinated female comes emergency department with concern for COVID infection. She took a home test which was positive. Patient has had 3 days of symptoms. She has generalized muscle body aches particularly in her back. She has felt generally unwell. She has had a nonproductive cough. She has had some nausea and vomiting. She denies any diarrhea. She denies any abdominal pain. She denies any active shortness of breath at this time. Patient is not any rashes or skin changes. No swelling in her extremities. She denies any medical issues. She denies any major surgeries. She has allergies to antibiotics. No tobacco, alcohol or illicit drugs. Related Data Previous Rx's Medication Instructions Recorded meclizine 25 mg tablet 25 mg PO TID PRN #21 tab 12/21/18 Allergies Allergy/AdvReac Type Severity Reaction Status Date / Time amoxicillin Allergy Intermediate Hives Verified 08/26/20 16:07 Sulfa (Sulfonamide Allergy Intermediate Hive Verified 08/26/20 16:07 Antibiotics) latex Allergy Verified 08/26/20 16:07 Penicillins Allergy Verified 08/26/20 16:07 Review of Systems Review of Systems ROS Unobtainable: All systems reviewed & are unremarkable except as noted in HPI and below Patient History Medical History Healthy adult Surgical History No pertinent past surgical history Social History household members: children Smoking Status: Never smoker alcohol intake: never Smoking Status: Never smoker alcohol intake frequency: holidays/special occasions only Substance Use Type: does not use Exam Narrative Exam Narrative: GENERAL: Alert and oriented x three, female in mild distress. HEENT: Head normocephalic, atraumatic, EOMI, pupils reactive, face symmetric NECK: Supple, full range of motion CARDIOVASCULAR: Regular rate and rhythm without murmurs, rubs or gallops. RESPIRATORY: Breath sounds equal bilaterally, no wheezes rales or rhonchi. ABDOMEN: Soft, nontender. Normoactive bowel sounds all 4 quadrants. No guarding or rebound, rigidity, no mass : No CVA tenderness EXTREMITIES: Normal range of motion, no clubbing or edema. Neurovascularly intact NEUROLOGICAL: Cranial nerves II through XII grossly intact. Moving all extremities. Normal gait. SKIN: Warm, dry, no petechiae, no rashes or lesions. Initial Vital Signs Initial Vital Signs: Vital Signs Temperature 98.4 F 12/27/20 08:42 Pulse Rate 81 12/27/20 08:42 Respiratory Rate 16 12/27/20 08:42 Blood Pressure 108/69 12/27/20 08:42 Pulse Oximetry 100 12/27/20 08:42 Course Orders Ordered: Discontinued Medications Acetaminophen (Acetaminophen 325 Mg Tablet) 975 mg PO NOW ONE Stop: 12/27/20 09:23 Last Admin: 12/27/20 09:27 Dose: 975 mg Documented by: FELIX Vital Signs Vital signs: Vital Signs - 8 hr 12/27/20 08:42 Temperature 98.4 F Pulse Rate 81 Respiratory Rate 16 Blood Pressure 108/69 Pulse Oximetry 100 MDM - URI/Sore Throat Lab Data Labs: Lab Results 12/27/20 Range/Units 08:44 SARS-CoV-2 (PCR) Positive H (Negative) Imaging Data Chest x-ray: Radiologist's Impression: Salina King??29??F??1990 ? Allergy/Adv: amoxicillin, Sulfa (Sulfonamide Antibiotics), latex, Penicillins (More??) Close Chest X-Ray (Signed) Soham Tee - 12/27/20 Pelvis Ultrasound (Signed) Angela Rodriguez - 08/07/20 Abdomen/Pelvis CT (Signed) Reginaldo Waite - 08/06/20 Launch?[address] [address] XRay Report Signed Patient: Salina King MR#: [id number] : 1990 Acct:[id number] Age/Sex: 29 / F Date of Service: 12/27/20 Loc: ED Accession Number: [id number] ?? Procedure: XR chest 2V Ordering Provider: Simran Glaser D.O. PROCEDURE:? XR CHEST 2V ? INDICATIONS:? COVID + SOB and chest tightness ? TECHNIQUE:? 2 views of the chest were acquired.? ? COMPARISON:? None. ? FINDINGS:? ? Surgical changes and devices:? None.? ? Lungs and pleura:? Lungs are clear.? No pleural effusions or pneumothorax.? ? Mediastinum:? Mediastinal contours are normal.? Heart size is normal.? ? Bones and chest wall:? No suspicious bony abnormalities.? Soft tissues appear unremarkable.? ? IMPRESSION:? No acute cardiopulmonary abnormality. ? ? Dictated by: Soham Tee M.D. on 12/27/2020 at 8:09 ? ? Approved by: Soham Tee M.D. on 12/27/2020 at 8:10?? MDM Narrative Medical decision making narrative: This is a 29-year-old unvaccinated female with no other high risk factors who is positive for COVID infection with negative chest x-ray and reassuring vitals. Discussed return precautions. She has been taking DayQuil and NyQuil at home which she has found mildly helpful. She defers any prescription for cough medication. We did discuss that after she improves her in her infection and appropriate time frame she could still and would benefit from being vaccinated. Discharge Plan Departure Patient Disposition: Home Clinical Impression: COVID-19 virus infection Instructions: DI for COVID-19 (Suspected or Confirmed ) Activity Restrictions/Additional Instructions: *You have been diagnosed with coronavirus infection. Your chest x-ray today does not show any changes or signs of pneumonia at this time. If you wish you may obtain a pulse oximeter for use at home to monitor. Please return to the ER if your pulse oximeter shows an O2 saturation less than 92%. Please return for passing out, worsening chest pain, shortness of breath, persistent vomiting, black or bloody stools, new swelling in your extremities or other new or concerning symptoms. *What to do: * per recommendations from the CDC and the [facility] Department of Health * stay home except to get medical care. Restrict activities outside your home, except for getting medical care. Do not go to work, school, or public areas. Avoid using public transportation, ride sharing, or taxis. * separate yourself from other people in your home. * call ahead before visiting your doctor * Wear a face mask * Cover your coughs and sneezes * Clean your hands often * Avoid sharing household items * Clean all high-touch services every day * Monitor your symptoms and seek prompt medical attention if your illness is worsening, particularly with difficulty in breathing. Discussed continuing home isolation * for individuals with symptoms who are confirmed or suspected cases of COVID-19 and are directed to care for themselves at home, discontinue home isolation under the following conditions: 1. At least 72 hours have passed since recovery, defined as resolution of fever without the use of fever reducing medications, and improvement in respiratory symptoms (cough, shortness of breath) AND, 2. At least 7 days have passed since symptoms 1st appeared Individuals with laboratory confirmed COVID-19 who have not had any symptoms may discontinue home isolation when at least 7 days have passed since the date of their 1st COVID-19 diagnostic test and have had no subsequent illness Prescriptions: No Action meclizine 25 mg tablet 25 mg PO TID PRN (Reason: dizziness) Qty: 21 RF: 0
[2020-12-27] MEDS: ACETAMINOPHEN 325 MG TABLET 975 MG PO (09:27)
[2020-12-27 09:50] VITALS: BP 121/74; PULSE 80; RESP 18; TEMP 36.9; O2SAT 98
== END 2020-12-27 09:52 | disposition home or self-care (01) ==
PROVIDERS: Emergency Provider Emergency Medicine
DX: U07.1 COVID-19 (principal); R11.2 Nausea with vomiting, unspecified; R06.02 Shortness of breath; R07.9 Chest pain, unspecified
CPT/HCPCS: 71046; 87635; 99283; C9803

== ENCOUNTER 2021-08-17 19:38 | Emergency (ER) | payer OTHER, MEDICAID, SELFPAY ==
[2020-08-07 04:39] VITALS: BMI 26.5
[2021-08-17 19:45] VITALS: BP 125/79; PULSE 87; RESP 18; TEMP 37; O2SAT 98; BMI 26.6
--- NOTE | 2021-08-17 20:49 | ED.GENADULT ---
HPI - General Adult General Chief complaint: Ear Stated complaint: Right side ear infection Time Seen by Provider: 08/17/21 20:16 Source: patient Mode of arrival: Ambulatory History of Present Illness HPI narrative: Patient is here for right-sided ear pain and fullness and decreased hearing in her right ear. She states this been going on for the past couple days. No sinus congestion. No sore throat. No headache. She has had issues with the canals in both of her ears and the skin around her ears for approximately 9 months. She has tried multiple creams and an antifungal medication that was given by her primary doctor. She states that she has never been on any antibiotic ear drops. She states that there has been referral for her to get in to see Dermatology but this has not happened as of this point. Related Data Previous Rx's Medication Instructions Recorded meclizine 25 mg tablet 25 mg PO TID PRN #21 tab 12/21/18 azithromycin 250 mg tablet See Rx Instructions .ROUTE 08/17/21 .COMPLEX #6 tab Allergies Allergy/AdvReac Type Severity Reaction Status Date / Time amoxicillin Allergy Intermediate Hives Verified 08/17/21 19:49 Sulfa (Sulfonamide Allergy Intermediate Hive Verified 08/17/21 19:49 Antibiotics) latex Allergy Verified 08/17/21 19:49 Penicillins Allergy Verified 08/17/21 19:49 Review of Systems Constitutional Constitutional: Denies fever(s) ENT Ears, Nose, Mouth, and Throat: Reports system reviewed and no additional complaints, except as documented and Reports as per HPI Respiratory Respiratory: Reports as per HPI and Reports system reviewed and no additional complaints, except as documented Integumentary/Breasts Skin/Breast: Reports system reviewed and no additional complaints, except as documented Patient History Medical History Healthy adult Surgical History No pertinent past surgical history Social History household members: children Smoking Status: Never smoker alcohol intake: never Smoking Status: Never smoker alcohol intake frequency: holidays/special occasions only Substance Use Type: does not use Exam Initial Vital Signs Initial Vital Signs: Vital Signs Temperature 98.6 F 08/17/21 19:45 Pulse Rate 87 08/17/21 19:45 Respiratory Rate 18 08/17/21 19:45 Blood Pressure 125/79 08/17/21 19:45 Pulse Oximetry 98 08/17/21 19:45 Const General: cooperative and comfortable HENMT Head: normal to inspection and normocephalic Mouth: moist mucous membranes Other HENMT:: The external auditory canal of the left ear is not red but does have some inflammation. The tympanic membrane is unremarkable. The external auditory canal of the right ear is also inflamed and red. Minimal swelling. Some drainage. The tympanic membrane on the right is not erythematous but it is bulging. Resp Effort & Inspection: normal respiratory effort Skin Other: Patient does have crusting and irritation and thickening of the skin surrounding the year specifically behind the ears and on the earlobes. Course Orders Ordered: ED Orders 08/17/21 20:47 Wound Culture and Gram Stain Stat Vital Signs Vital signs: Vital Signs - 8 hr 08/17/21 19:45 Temperature 98.6 F Pulse Rate 87 Respiratory Rate 18 Blood Pressure 125/79 Pulse Oximetry 98 Medical Decision Making [facility] Narrative Medical decision making narrative: The issues that she has been having with her external auditory canals and the skin around her ears as not new. She has been on multiple creams and antifungal medicine. She states some of them have made the symptoms better but then it always comes back. She has never been on any antibiotic drops according to her. She has been seen by her primary doctor for this. If the patient had not been seen by another provider prior to myself I would have diagnosed her with otitis externa and started her on a antibiotic drop. I had a discussion about having multiple physicians trying to make diagnoses and providing medications. The plan will be is to culture the ear. She states she has never had a culture in the past. We were able to get a sample from her right external auditory canal. We will wait on any antibiotics to avoid complicating the situation until this culture results. I also feel that a be helpful for her primary doctor as well. She does have a bulging right tympanic membrane which most likely explains the fullness in the loss of hearing in that right ear. I suspect that this is upper respiratory issue. Had a discussion with her regarding this. The plan will be is to have her take decongestants and nasal sprays for the next couple days to see if this does not improve her symptoms. She was given a prescription for oral antibiotics however she is going to hold on starting this to see if the more conservative decongestant/antihistamines work. She was informed that she should either see ear nose and throat or Dermatology for her issues. She expressed understanding and agreement. Discharge Plan Departure Patient Disposition: Home Clinical Impression: Otitis media Instructions: Middle Ear Infection Activity Restrictions/Additional Instructions: A culture of your right ear was obtained today. We will contact you if we need to start any antibiotic drops. Like we discussed I recommend that you start taking a antihistamine such as Claritin or Meli or Zyrtec. You can purchase these [id number]. The generic version these medications is appropriate. He would also consider taking a nasal spray such as Nasonex or Flonase. You can also purchase these [id number]. The generic versions are appropriate as well. Your given a prescription for antibiotics however I recommend that you start with these decongestant/antihistamines for the next 3-4 days. If your symptoms improve then disregard this prescription. If your symptoms worsen during this time start taking the antibiotics as directed. Prescriptions: New azithromycin 250 mg tablet See Rx Instructions .ROUTE .COMPLEX Qty: 6 0RF Rx Instructions: For 250 mg dose pack: take 500 mg today (day 1), then 250 mg for 4 days (days 2-5) No Action meclizine 25 mg tablet 25 mg PO TID PRN (Reason: dizziness) Qty: 21 0RF
--- NOTE | 2021-08-18 09:45 | PC.NURSE ---
Rhianna called into [facility] for Pt.
== END 2021-08-17 21:06 | disposition home or self-care (01) ==
PROVIDERS: Emergency Provider Emergency Medicine
DX: H66.91 Otitis media, unspecified, right ear (principal)
CPT/HCPCS: 87070; 87075; 87077; 87147; 87186; 87205; 99281; 99282

== ENCOUNTER 2022-05-03 11:52 | Emergency (ER) | payer OTHER, MEDICAID, SELFPAY ==
[2020-08-07 04:39] VITALS: BMI 26.5
[2022-05-03 12:00] VITALS: BP 128/77; PULSE 90; RESP 18; TEMP 37.4; O2SAT 96; BMI 25.8
[2022-05-03 12:56] LABS: Influenza A - CEPHEID Flu A NEGATIVE (NEGATIVE); Influenza B - CEPHEID Flu B NEGATIVE (NEGATIVE); Respiratory Syncytial Virus Negative (Negative)
[2022-05-03 12:58] LABS: COVID-19 CEPHEID 4-PLEX PCR Negative (Negative)
--- NOTE | 2022-05-03 13:53 | PC.NURSE ---
patient has multiple lip ulcers and a sore throat 10 effecting her nutrition
--- NOTE | 2022-05-03 14:38 | ED_ITS ---
HPI - URI/Sore Throat <MARCUS Acuna - Last Filed: 05/03/22 15:08> General Chief Complaint: Upper Respiratory Symptoms Stated Complaint: fever,chills,body aches,hurts to swallow, T-1 Time Seen by Provider: 05/03/22 14:11 Source: patient Mode of arrival: Ambulatory History of Present Illness HPI Narrative: 31-year-old female, nonsmoker, presents to the emergency department with complaints of mouth sores, sore throat, body aches and fever x1 day. T-max of 103?. Patient is concerned about the blisters on her lip and mouth that is making it difficult to eat or drink. Patient reports that she has had cold sores in the past but allows them to heal on their own. Related Data Previous Rx's Medication Instructions Recorded meclizine 25 mg tablet 25 mg PO TID PRN dizziness #21 tabs 12/21/18 azithromycin 250 mg tablet See Rx Instructions PO .COMPLEX #6 08/17/21 tabs azithromycin 250 mg tablet See Rx Instructions PO .COMPLEX 05/03/22 Pharyngitis #6 tabs dexamethasone 0.5 mg/5 mL oral 0.5 mg (5 mL) PO TID Aphthous 05/03/22 solution sores #240 mL Allergies Allergy/AdvReac Type Severity Reaction Status Date / Time amoxicillin Allergy Intermediate Hives Verified 08/17/21 19:49 Sulfa (Sulfonamide Allergy Intermediate Hive Verified 08/17/21 19:49 Antibiotics) latex Allergy Verified 08/17/21 19:49 Penicillins Allergy Verified 08/17/21 19:49 Review of Systems <MARCUS Acuna - Last Filed: 05/03/22 15:08> Review of Systems Narrative: Narrative: See HPI. GENERAL: Denies fatigue and sweats. Endorses fever and chills. HEENT: Denies sinus pain, ear pain, difficulty swallowing, dizziness. Endorses sore throat and mouth sores. RESPIRATORY: Denies dyspnea, cough, wheezing, sputum. CARDIOVASCULAR: Denies chest pain, palpitations, edema. GASTROINTESTINAL: Denies nausea, vomiting, abdominal pain, diarrhea, constipation. : Denies dysuria, frequency, incontinence, hematuria, urinary retention, flank pain. MSK: Denies weakness, joint pain, or bony pain. SKIN: Denies rash or pruritis. Endorses blister-like lesions on lower lip and inside mouth. NEUROLOGIC: Denies weakness, dizziness, headache, numbness, confusion. PSYCHIATRIC: No concerning psychosocial issues. Patient History <MARCUS Acuna - Last Filed: 05/03/22 15:08> Medical History (Updated 05/03/22 @ 15:04 by MARCUS Acuna) Healthy adult Surgical History No pertinent past surgical history Social History household members: children Smoking Status: Never smoker alcohol intake: never Smoking Status: Never smoker alcohol intake frequency: holidays/special occasions only Substance Use Type: does not use Exam <MARCUS Acuna - Last Filed: 05/03/22 15:08> Narrative Exam Narrative: Exam Narrative: GENERAL: This is a well-nourished, well-developed patient, in no acute distress. HEAD: Atraumatic. Normocephalic. EYES: Pupils equal round and reactive. Extraocular motions intact. No scleral icterus, injection or drainage. ENT: Nose without bleeding, purulent drainage. Throat with erythema, tonsillar hypertrophy and exudate. Uvula midline. Airway patent. TMs and canals clear. No sinus tenderness. NECK: Trachea midline. No JVD or lymphadenopathy. Nontender. CARDIOVASCULAR: Regular rate and rhythm without murmurs, peripheral pulses intact, cap refill <2 sec. RESPIRATORY: Breath sounds equal and clear bilaterally. No wheezes, rales, or rhonchi. No witnessed cough. No increased respiratory effort. No accessory muscle use. GASTROINTESTINAL: Abdomen soft, non-tender, nondistended without guarding or rebound. No suprapubic pain. MSK: Moves all extremities. Normal range of motion, no clubbing or edema. Neurovascularly intact. NEURO: A&O x 3. SKIN: Warm, dry, no rashes noted. Vesicular lesions on lower lip and left inside cheek. Initial Vital Signs Initial Vital Signs: Vital Signs Temperature 99.4 F 05/03/22 12:00 Pulse Rate 90 05/03/22 12:00 Respiratory Rate 18 05/03/22 12:00 Blood Pressure 128/77 05/03/22 12:00 Pulse Oximetry 96 05/03/22 12:00 Oxygen Delivery Method 05/03/22 12:00 Reviewed <Simran Glaser DO - Last Filed: 05/03/22 18:41> Initial Vital Signs Initial Vital Signs: Vital Signs Temperature 99.4 F 05/03/22 12:00 Pulse Rate 90 05/03/22 12:00 Respiratory Rate 18 05/03/22 12:00 Blood Pressure 128/77 05/03/22 12:00 Pulse Oximetry 96 05/03/22 12:00 Oxygen Delivery Method 05/03/22 12:00 Course <MARCUS Acuna - Last Filed: 05/03/22 15:08> Orders Ordered: ED Orders 05/03/22 12:09 Throat Culture Stat 05/03/22 12:10 Covid-19 + FLU A/B + RSV - PCR Stat Discontinued Medications Dexamethasone (Dexamethasone 10 Mg/Ml Vial) 10 mg PO NOW ONE Stop: 05/03/22 14:56 Last Admin: 05/03/22 15:05 Dose: 10 mg Documented By: IRA Vital Signs Vital signs: Vital Signs - 8 hr 05/03/22 12:00 05/03/22 15:25 Temperature 99.4 F Pulse Rate 90 96 H Respiratory Rate 18 14 Blood Pressure 128/77 134/73 Pulse Oximetry 96 97 Oxygen Delivery Method Room Air Room Air <Simran Glaser DO - Last Filed: 05/03/22 18:41> Orders Ordered: ED Orders 05/03/22 12:09 Throat Culture Stat 05/03/22 12:10 Covid-19 + FLU A/B + RSV - PCR Stat Discontinued Medications Dexamethasone (Dexamethasone 10 Mg/Ml Vial) 10 mg PO NOW ONE Stop: 05/03/22 14:56 Last Admin: 05/03/22 15:05 Dose: 10 mg Documented By: IRA Vital Signs Vital signs: Vital Signs - 8 hr 05/03/22 12:00 05/03/22 15:25 Temperature 99.4 F Pulse Rate 90 96 H Respiratory Rate 18 14 Blood Pressure 128/77 134/73 Pulse Oximetry 96 97 Oxygen Delivery Method Room Air Room Air MDM - URI/Sore Throat <MARCUS Acuna - Last Filed: 05/03/22 15:08> Differential Diagnosis Differential diagnosis: Likely upper respiratory infection, viral infection and pharyngitis Lab Data Labs: Lab Results 05/03/22 Range/Units 12:10 SARS-CoV-2 (PCR) Negative (Negative) Influenza A (RT-PCR) Flu a negative (NEGATIVE) Influenza B (RT-PCR) Flu b negative (NEGATIVE) RSV (PCR) Negative (Negative) Point of Care Testing Rapid Strep A Negative MDM Narrative Medical decision making narrative: 31 year old female presents to the walk-in clinic with a 24 hour history of sore throat, mouth sores, fever, body aches. Viral panel was negative. Rapid strep was negative. Assessment was consistent with pharyngitis, viral illness and aphthous sores vs HSV 1. Single dose of Decadron provided. Will treat with azithromycin for the pharyngitis, due to amoxicillin allergy. Will provide some dexamethasone swish and spit for the mouth pain so she can eat and drink appropriately. Discussed plan of care and return precautions with patient, who verbalized understanding. <Simran Glaser, DO - Last Filed: 05/03/22 18:41> Lab Data Labs: Lab Results 05/03/22 Range/Units 12:10 SARS-CoV-2 (PCR) Negative (Negative) Influenza A (RT-PCR) Flu a negative (NEGATIVE) Influenza B (RT-PCR) Flu b negative (NEGATIVE) RSV (PCR) Negative (Negative) Point of Care Testing Rapid Strep A Negative Discharge Plan Departure Patient Disposition: Home Clinical Impression: Viral infection, Pharyngitis Instructions: DI for Strep Throat, DI for Viral Upper Respiratory Infection -- Adult Activity Restrictions/Additional Instructions: *You have been diagnosed with pharyngitis and viral illness. Your rapid strep was negative but we will send in a sample for culture and contact you with the results. Due to the severity of her symptoms, will begin treatment with antibiotics. We have given you a single dose of steroids to help with the swelling. I will also prescribe a swish and spit medication that you can use to help with your mouth sores, to control the pain so that you can eat and drink. Please take only as directed and no more than prescribed. If symptoms persist, recommend he be evaluated for herpes simplex 1 in case these sores do not improve. Please follow-up with your family doctor as needed. For any worsening symptoms that include chest pain, shortness of breath or intolerable pain, please return to the emergency department. *What to do: *Please continue to take your regular medications as directed. [x ] New medication prescriptions sent to your pharmacy: [[facility]] [ ] New medication written as a paper prescription [ ] No new medications given *Please follow up with your primary care provider in 2-3 days, call for an appointment. Let them know you were seen in the Emergency Department and that we ask that you be seen in follow up. We will electronically transmit a record of today's note if your PCP is in our system *If you do not have a primary care provider please contact the [facility] Resource line at [phone]. They will ask some questions about your medical history and help get you set up with a doctor in the community. ? Return to ER if you should have any new, worsening or concerning symptoms, such as worsening pain, severe headache, confusion, chest pain, difficulty breathing, fever greater than 101 F, shaking chills, persistent vomiting to the point that you cannot drink fluids, or other new or worsening symptoms. Prescriptions: New azithromycin 250 mg tablet See Rx Instructions .ROUTE .COMPLEX Qty: 6 0RF Rx Instructions: For 250 mg dose pack: take 500 mg today (day 1), then 250 mg for 4 days (days 2-5) dexamethasone 0.5 mg/5 mL solution 0.5 mg PO TID Qty: 240 0RF No Action meclizine 25 mg tablet 25 mg PO TID PRN (Reason: dizziness) Qty: 21 0RF azithromycin 250 mg tablet See Rx Instructions .ROUTE .COMPLEX Qty: 6 0RF Rx Instructions: For 250 mg dose pack: take 500 mg today (day 1), then 250 mg for 4 days (days 2-5) Referrals: Lyudmila Nettles PA-C [Primary Care Provider] - Stand Alone Forms: Patient Portal/API, Work Release Note <Simran Glaser DO - Last Filed: 05/03/22 18:41> Cosign ED Attending Tamikaature Attestation: I was immediately available in the department for consultation. Documentation has been reviewed.
[2022-05-03] MEDS: DEXAMETHASONE 10 MG/ML VIAL PO (15:05)
[2022-05-03 15:25] VITALS: BP 134/73; PULSE 96; RESP 14; O2SAT 97
== END 2022-05-03 15:26 | disposition home or self-care (01) ==
PROVIDERS: Emergency Medicine; Emergency Provider Registered Nurse; PCP Physician Assistant
DX: J02.9 Acute pharyngitis, unspecified (principal); B34.9 Viral infection, unspecified
CPT/HCPCS: 0241U; 87070; 87880; 99283; J1100

== ENCOUNTER 2022-05-04 11:45 | Emergency (ER) | payer OTHER, MEDICAID, SELFPAY ==
[2020-08-07 04:39] VITALS: BMI 26.5
[2022-05-04 12:01] VITALS: PULSE 69; RESP 16; TEMP 36.6; O2SAT 98; BMI 25.8
--- NOTE | 2022-05-04 13:25 | DI.RAD.S_ITS ---
PROCEDURE: XR CHEST 2V INDICATIONS: chest pain TECHNIQUE: 2 views of the chest were acquired. COMPARISON: [facility], CR, XR CHEST 2V, 12/27/2020, 8:41. FINDINGS: Surgical changes and devices: None. Lungs and pleura: Lungs are clear. No pleural effusions or pneumothorax. Mediastinum: Mediastinal contours are normal. Heart size is normal. Bones and chest wall: No suspicious bony abnormalities. Soft tissues appear unremarkable. IMPRESSION: No acute process. Dictated by: Dimple Best M.D. on 05/04/2022 at 14:32 Approved by: Dimple Best M.D. on 05/04/2022 at 14:32
--- NOTE | 2022-05-04 13:27 | ED_ITS ---
HPI - Chest Pain <Briseida Pascual PA-C - Last Filed: 05/04/22 16:30> General Chief Complaint: Chest Pain Stated Complaint: Chest pain Time Seen by Provider: 05/04/22 12:01 History of Present Illness HPI narrative: 31-year-old female with no reported past medical history presents to the ED with 3 days of URI symptoms and chest pain. Patient states that her symptoms started 3 days ago with a fever, cough, sore throat. Patient states that she started experiencing some left-sided chest pain yesterday. Patient states the pain does not radiate. Pain is worse when laying flat. The pain comes and goes and lasts about 6 or 7 minutes at a time. Patient denies history of acid reflux. Patient denies history of early cardiac deaths in the family. Patient denies trouble breathing, vomiting, dysuria, diarrhea, hematochezia, lightheadedness, dizziness, syncope. Related Data Previous Rx's Medication Instructions Recorded meclizine 25 mg tablet 25 mg PO TID PRN dizziness #21 tabs 12/21/18 azithromycin 250 mg tablet See Rx Instructions PO .COMPLEX #6 08/17/21 tabs azithromycin 250 mg tablet See Rx Instructions PO .COMPLEX 05/03/22 Pharyngitis #6 tabs dexamethasone 0.5 mg/5 mL oral 0.5 mg (5 mL) PO TID Aphthous 05/03/22 solution sores #240 mL Allergies Allergy/AdvReac Type Severity Reaction Status Date / Time amoxicillin Allergy Intermediate Hives Verified 05/04/22 12:04 Sulfa (Sulfonamide Allergy Intermediate Hive Verified 05/04/22 12:04 Antibiotics) latex Allergy Verified 05/04/22 12:04 Penicillins Allergy Verified 05/04/22 12:04 Review of Systems <Briseida Pascual PA-C - Last Filed: 05/04/22 16:30> Review of Systems ROS Unobtainable: All systems reviewed & are unremarkable except as noted in HPI and below Constitutional Constitutional: Denies chills, Reports fatigue, Reports fever(s), Denies frequent falls, Denies lethargy and Denies weakness Eyes Eyes: Denies change in vision, Denies eye discharge, Denies irritation and Denies loss of vision ENT Ears, Nose, Mouth, and Throat: Denies change in voice, Denies dizziness, Denies neck pain, Reports sore throat and Denies throat swelling Cardiovascular Cardiovascular: Reports chest pain, Denies irregular heart rhythm, Denies lightheadedness, Denies palpitations, Denies dyspnea, Denies dyspnea on exertion and Denies orthopnea Respiratory Respiratory: Reports cough, Denies dyspnea, Denies dyspnea on exertion and D enies wheezing Gastrointestinal Gastrointestinal: Denies abdominal pain, Denies change in bowel habits, Denies diarrhea, Reports nausea and Denies vomiting Genitourinary Genitourinary: Denies hematuria, Denies flank pain, Denies urinary incontinence and Denies urinary urgency Musculoskeletal Musculoskeletal: Denies back pain, Denies muscle weakness, Denies neck pain, Denies numbness and Denies tingling Integumentary/Breasts Skin/Breast: Denies pruritus, Denies erythema, Denies rash and Denies wounds Neurologic Neurologic: Denies behavioral changes, Denies confusion, Denies dizziness, Denies frequent falls, Denies loss of vision, Denies numbness, Denies tingling and Denies weakness Psychiatric Psychiatric: Denies anxiety, Denies behavioral changes, Denies confusion, Denies depression, Denies homicidal ideation and Denies suicidal ideation Endocrine Endocrine: Reports fatigue, Denies flushing and Denies palpitations Hematologic/Lymphatic Hematologic/Lymphatic: Denies easy bruising Allergic/Immunologic Allergic/Immunologic: Denies urticaria, Denies throat swelling and Denies wheezing Patient History <Briseida Pascual PA-C - Last Filed: 05/04/22 16:30> Medical History (Updated 05/04/22 @ 16:17 by Briseida Pascual PA-C) Healthy adult Surgical History No pertinent past surgical history Social History household members: children Smoking Status: Never smoker alcohol intake: never Smoking Status: Never smoker alcohol intake frequency: holidays/special occasions only Substance Use Type: does not use Exam <Briseida Pascual PA-C - Last Filed: 05/04/22 16:30> Narrative Exam Narrative: Const General:?cooperative, healthy appearing and comfortable [facility] Head:?normal to inspection Ears:?hearing grossly normal bilaterally Nose:?external nose normal Face and sinus:?normal facial exam and sinuses nontender Mouth:?oral mucosae normal Throat:?posterior oropharynx normal Eyes General:?appearance normal, both eyes and all related structures Neck Neck:?normal visual inspection and no lymphadenopathy noted Resp Effort & Inspection:?normal respiratory effort Auscultation:?clear to auscultation bilaterally Cardio Rate:?regular rate Rhythm:?regular rhythm Neuro General:?patient alert, patient awake and patient oriented x3 Initial Vital Signs Initial Vital Signs: Vital Signs Temperature 97.8 F 05/04/22 12:01 Pulse Rate 69 05/04/22 12:01 Respiratory Rate 16 05/04/22 12:01 Pulse Oximetry 98 05/04/22 12:01 Oxygen Delivery Method 05/04/22 12:01 <Kyleigh Schrader DO - Last Filed: 05/07/22 04:02> Initial Vital Signs Initial Vital Signs: Vital Signs Temperature 97.8 F 05/04/22 12:01 Pulse Rate 69 05/04/22 12:01 Respiratory Rate 16 05/04/22 12:01 Pulse Oximetry 98 05/04/22 12:01 Oxygen Delivery Method 05/04/22 12:01 Course <Briseida Pascual PA-C - Last Filed: 05/04/22 16:30> Orders Ordered: Discontinued Medications Al Hydrox/Mg Hydrox/Simethicone 20 ml/ Lidocaine HCl 15 ml 0 ml PO NOW ONE Stop: 05/04/22 13:27 Last Admin: 05/04/22 13:39 Dose: 35 ml Documented By: AMBER Famotidine (Famotidine 20 Mg Tablet) 20 mg PO BID ONE Stop: 05/04/22 13:28 Last Admin: 05/04/22 13:39 Dose: 20 mg Documented By: AMBER Ketorolac Tromethamine (Ketorolac 30 Mg/Ml Vial) 15 mg IV NOW ONE Stop: 05/04/22 15:40 Last Admin: 05/04/22 15:57 Dose: 15 mg Documented By: AMBER Vital Signs Vital signs: Vital Signs - 8 hr 05/04/22 12:01 05/04/22 13:30 Temperature 97.8 F Pulse Rate 69 74 Respiratory Rate 16 20 Blood Pressure 114/75 Pulse Oximetry 98 99 Oxygen Delivery Method Room Air Room Air <Kyleigh Schrader DO - Last Filed: 05/07/22 04:02> Orders Ordered: Discontinued Medications Al Hydrox/Mg Hydrox/Simethicone 20 ml/ Lidocaine HCl 15 ml 0 ml PO NOW ONE Stop: 05/04/22 13:27 Last Admin: 05/04/22 13:39 Dose: 35 ml Documented By: SB Famotidine (Famotidine 20 Mg Tablet) 20 mg PO BID ONE Stop: 05/04/22 13:28 Last Admin: 05/04/22 13:39 Dose: 20 mg Documented By: SB Ketorolac Tromethamine (Ketorolac 30 Mg/Ml Vial) 15 mg IV NOW ONE Stop: 05/04/22 15:40 Last Admin: 05/04/22 15:57 Dose: 15 mg Documented By: SB Vital Signs Vital signs: Vital Signs - 8 hr 05/04/22 12:01 05/04/22 13:30 Temperature 97.8 F Pulse Rate 69 74 Respiratory Rate 16 20 Blood Pressure 114/75 Pulse Oximetry 98 99 Oxygen Delivery Method Room Air Room Air MDM - Chest Pain <Briseida Pascual PA-C - Last Filed: 05/04/22 16:30> Lab Data 05/04/22 13:37 05/04/22 13:37 Labs: Lab Results 05/04/22 05/04/22 05/04/22 Range/Units 13:37 13:37 15:22 WBC 11.4 H (4.5-11.0) X10^3/uL RBC 4.47 (4.0-5.2) X10^6/uL Hgb 12.2 (12.0-16.0) g/dL Hct 37.2 (36-46) % MCV 83.2 (80-100) fL MCH 27.3 (26-34) PG MCHC 32.8 (30-36) % RDW 15.7 H (11.6-14.8) % Plt Count 371 (150-400) X10^3/uL Neut % (Auto) 83.9 H (50-75) % Lymph % (Auto) 8.2 L (25-40) % Stevens % (Auto) 7.7 (3-14) % Eos % (Auto) 0.0 L (2-4) % Baso % (Auto) 0.2 (0-2) % Neut # (Auto) 9500 H (8809-0466) /uL Lymph # (Auto) 900 L (3373-3357) /uL Stevens # (Auto) 900 (0-900) /uL Eos # (Auto) 0 (0-450) /uL Baso # (Auto) 0 (0-100) /uL Sodium 137 (137-145) mmol/L Potassium 4.1 (3.4-5.1) mmol/L Chloride 99 (98-107) mmol/L Carbon Dioxide 25 (22-32) mmol/L BUN 10 (7-17) mg/dL Creatinine 0.54 (0.52-1.04) mg/dL Estimated GFR > 60 (>60) mL/min BUN/Creatinine Ratio 18.5 (6-22) Glucose 95 (70-100) mg/dL Calcium 9.4 (8.4-10.2) mg/dL Total Bilirubin 0.3 (0.2-1.3) mg/dL AST 27 (14-36) IU/L ALT 21 (<35) IU/L Alkaline Phosphatase 60 (38-126) U/L Total Creatine Kinase 41 (30-135) U/L CK-MB (CK-2) TNP CK-MB (CK-2) Rel Index TNP Troponin I < 0.012 (0.01-0.034) ng/mL Total Protein 8.4 H (6.3-8.2) g/dL Albumin 4.6 (3.5-5.0) g/dL Globulin 3.8 (1.7-4.1) g/dL Albumin/Globulin Ratio 1.2 (1.0-2.8) Lipase 130 (23-300) U/L SARS-CoV-2 (PCR) Negative (Negative) Influenza A (RT-PCR) Flu a negative (NEGATIVE) Influenza B (RT-PCR) Flu b negative (NEGATIVE) RSV (PCR) Negative (Negative) MDM Narrative Medical decision making narrative: 31-year-old female with no reported past medical history presents to the ED with 3 days of URI symptoms and chest pain. Concern for viral URI versus pneumonia versus ACS versus acid reflux versus other. Will obtain labs, chest x-ray, EKG. Will trial GI cocktail, Pepcid AC. Will reassess. Workup was unremarkable. EKG, chest x-ray, labs without acute findings. Respiratory panel was negative for COVID, influenza, RSV. Patient's symptoms likely due to a viral infection. ED return precautions were discussed with patient. Patient verbalized understanding. ? Medical records reviewed:??yes Independently reviewed EKG as above: Normal sinus rhythm, no axis deviation, no ST-T changes ? Imaging studies independently reviewed: yes ? Disposition: see below, along with detailed discharge instructions that have been reviewed with patient as well as indications for ED re-evaluation and additional outpatient follow up <Kyleigh Schrader, DO - Last Filed: 05/07/22 04:02> Lab Data Labs: Lab Results 05/04/22 05/04/22 05/04/22 Range/Units 13:37 13:37 15:22 WBC 11.4 H (4.5-11.0) X10^3/uL RBC 4.47 (4.0-5.2) X10^6/uL Hgb 12.2 (12.0-16.0) g/dL Hct 37.2 (36-46) % MCV 83.2 (80-100) fL MCH 27.3 (26-34) PG MCHC 32.8 (30-36) % RDW 15.7 H (11.6-14.8) % Plt Count 371 (150-400) X10^3/uL Neut % (Auto) 83.9 H (50-75) % Lymph % (Auto) 8.2 L (25-40) % Stevens % (Auto) 7.7 (3-14) % Eos % (Auto) 0.0 L (2-4) % Baso % (Auto) 0.2 (0-2) % Neut # (Auto) 9500 H (6286-5266) /uL Lymph # (Auto) 900 L (3254-3864) /uL Stevens # (Auto) 900 (0-900) /uL Eos # (Auto) 0 (0-450) /uL Baso # (Auto) 0 (0-100) /uL Sodium 137 (137-145) mmol/L Potassium 4.1 (3.4-5.1) mmol/L Chloride 99 (98-107) mmol/L Carbon Dioxide 25 (22-32) mmol/L BUN 10 (7-17) mg/dL Creatinine 0.54 (0.52-1.04) mg/dL Estimated GFR > 60 (>60) mL/min BUN/Creatinine Ratio 18.5 (6-22) Glucose 95 (70-100) mg/dL Calcium 9.4 (8.4-10.2) mg/dL Total Bilirubin 0.3 (0.2-1.3) mg/dL AST 27 (14-36) IU/L ALT 21 (<35) IU/L Alkaline Phosphatase 60 (38-126) U/L Total Creatine Kinase 41 (30-135) U/L CK-MB (CK-2) TNP CK-MB (CK-2) Rel Index TNP Troponin I < 0.012 (0.01-0.034) ng/mL Total Protein 8.4 H (6.3-8.2) g/dL Albumin 4.6 (3.5-5.0) g/dL Globulin 3.8 (1.7-4.1) g/dL Albumin/Globulin Ratio 1.2 (1.0-2.8) Lipase 130 (23-300) U/L SARS-CoV-2 (PCR) Negative (Negative) Influenza A (RT-PCR) Flu a negative (NEGATIVE) Influenza B (RT-PCR) Flu b negative (NEGATIVE) RSV (PCR) Negative (Negative) ECG Data Interpretation: [place]-normal sinus rhythm rate 67 NH interval 136 QRS [address] changes or T-wave inversions Discharge Plan Departure Patient Disposition: Home Clinical Impression: Upper respiratory infection Instructions: DI for Viral Upper Respiratory Infection -- Adult Activity Restrictions/Additional Instructions: You were evaluated in the ED today for fever, cough, chest pain. Your chest x- ray, EKG, labs, respiratory panel were all normal. Your symptoms are likely due to a viral infection. You may continue to take Tylenol, ibuprofen, over-the- counter cough medicines for your symptoms. Return to the ED if you have worsening chest pain or you experience shortness of breath. Prescriptions: No Action meclizine 25 mg tablet 25 mg PO TID PRN (Reason: dizziness) Qty: 21 0RF azithromycin 250 mg tablet See Rx Instructions .ROUTE .COMPLEX Qty: 6 0RF Rx Instructions: For 250 mg dose pack: take 500 mg today (day 1), then 250 mg for 4 days (days 2-5) dexamethasone 0.5 mg/5 mL solution 0.5 mg PO TID Qty: 240 0RF azithromycin 250 mg tablet See Rx Instructions .ROUTE .COMPLEX Qty: 6 0RF Rx Instructions: For 250 mg dose pack: take 500 mg today (day 1), then 250 mg for 4 days (days 2-5) Referrals: Lyudmila Nettles PA-C [Primary Care Provider] - Stand Alone Forms: Patient Portal/API, Work Release Note <Kyleigh Schrader DO - Last Filed: 05/07/22 04:02> Cosign ED Attending Cosignature Attestation: I was immediately available in the department for consultation. Documentation has been reviewed.
[2022-05-04 13:30] VITALS: BP 114/75; PULSE 74; RESP 20; O2SAT 99
[2022-05-04] MEDS: FAMOTIDINE 20 MG TABLET PO (13:39)
[2022-05-04] MEDS: MAG HYDROX/ALUMINUM/SIMETH SUS 20 ML, LIDOCAINE VISCOUS 2% 15 ML PO (13:39)
[2022-05-04 13:47] LABS: Add Manual Diff / Slide Review NO; Basophils Absolute Auto 0 /uL (0-100); Basophils Percent Auto 0.2 % (0-2); Eosinophils Absolute Auto 0 /uL (0-450); Hematocrit 37.2 % (36-46); Hemoglobin 12.2 g/dL (12.0-16.0); Lymphocytes Absolute Auto 900 /uL (1100-4500); Lymphocytes Percent Auto 8.2 % (25-40); Mean Corpuscular HGB Conc 32.8 % (30-36); Mean Corpuscular Hemoglobin 27.3 PG (26-34); Mean Corpuscular Volume 83.2 fL (80-100); Monocytes Absolute Auto 900 /uL (0-900); Monocytes Percent Auto 7.7 % (3-14); Neutrophils Absolute Auto 9500 /uL (1500-7000); Neutrophils Percent Auto 83.9 % (50-75); Platelet Count 371 X10^3/uL (150-400); Red Blood Cell Count 4.47 X10^6/uL (4.0-5.2); Red Cell Distribution Width 15.7 % (11.6-14.8); White Blood Cell Count 11.4 X10^3/uL (4.5-11.0)
[2022-05-04 14:04] LABS: Alanine Aminotransferase 21 IU/L (<35); Albumin 4.6 g/dL (3.5-5.0); Albumin Globulin Ratio 1.2 (1.0-2.8); Alkaline Phosphatase 60 U/L (38-126); Aspartate Aminotransferase 27 IU/L (14-36); BUN Creatinine Ratio 18.5 (6-22); Bilirubin Total 0.3 mg/dL (0.2-1.3); Blood Urea Nitrogen 10 mg/dL (7-17); Calcium 9.4 mg/dL (8.4-10.2); Carbon Dioxide 25 mmol/L (22-32); Chloride 99 mmol/L (98-107); Creatine Kinase 41 U/L (30-135); Estimated Glomerular Filt Rate > 60 mL/min (>60); Globulin 3.8 g/dL (1.7-4.1); Glucose 95 mg/dL (70-100); HEMOLYSIS < 15 (0-50); Lipase 130 U/L (23-300); Potassium 4.1 mmol/L (3.4-5.1); Sodium 137 mmol/L (137-145); Total Protein 8.4 g/dL (6.3-8.2)
[2022-05-04 14:15] LABS: Troponin I < 0.012 ng/mL (0.01-0.034)
[2022-05-04] MEDS: KETOROLAC 30 MG/ML VIAL 15 MG IV (15:57)
[2022-05-04 16:06] LABS: Influenza A - CEPHEID Flu A NEGATIVE (NEGATIVE); Influenza B - CEPHEID Flu B NEGATIVE (NEGATIVE); Respiratory Syncytial Virus Negative (Negative)
[2022-05-04 16:08] LABS: COVID-19 CEPHEID 4-PLEX PCR Negative (Negative)
[2022-05-04 16:46] VITALS: BP 116/73; PULSE 75; RESP 16; O2SAT 99
== END 2022-05-04 16:47 | disposition home or self-care (01) ==
PROVIDERS: Emergency Provider Student in an Organized Health Care Education/Training Program; PCP Physician Assistant
DX: J06.9 Acute upper respiratory infection, unspecified (principal); R07.9 Chest pain, unspecified; Z20.822 Contact with and (suspected) exposure to COVID-19
CPT/HCPCS: 0241U; 36415; 71046; 80053; 82550; 83690; 84484; 85025; 93005; 96374; 99284; A9270; J1885

== ENCOUNTER 2022-05-07 15:33 | Emergency (ER) | payer OTHER, MEDICAID, SELFPAY ==
[2020-08-07 04:39] VITALS: BMI 26.5
[2022-05-07 15:43] VITALS: BP 118/71; PULSE 95; RESP 15; TEMP 36.7; O2SAT 97; BMI 25.8
[2022-05-07 16:33] LABS: Ictotest Urine Negative (Negative)
[2022-05-07 16:39] LABS: Bacteria Urine None Seen; RBC Urine 30-100/HPF (0-5/HPF); Squamous Epithelial Cell Urine 1-5 /HPF (0-5/HPF); WBC Urine 5-10/HPF (0-5/HPF)
[2022-05-07 16:40] LABS: Culture Indicated Urine Specimen Cultured
[2022-05-07 19:30] VITALS: BP 122/71; PULSE 85; RESP 18; TEMP 37.3; O2SAT 99
[2022-05-07 20:00] VITALS: BP 117/71; PULSE 87; O2SAT 98
[2022-05-07 20:19] VITALS: PULSE 95; O2SAT 98
--- NOTE | 2022-05-07 20:19 | ED_ITS ---
HPI - General Adult General Chief complaint: Upper Respiratory Symptoms Stated complaint: sore throat, headache, fever, chills, bodyache Time Seen by Provider: 05/07/22 20:01 Source: patient Mode of arrival: Ambulatory Limitations: no limitations History of Present Illness HPI narrative: Patient is a 31-year-old female who is here for evaluation of a sore throat and headache and fevers and chills and body ache. Started having symptoms approximately 1 week ago. Went to the walk-in clinic. Was told that she had strep throat. Was placed on antibiotics. Has completed the course of the antibiotics. Is here because her symptoms have continued. She followed up with the walk-in clinic and they thought that maybe this was a dental infection. She was sent to the emergency department for evaluation. Related Data Previous Rx's Medication Instructions Recorded meclizine 25 mg tablet 25 mg PO TID PRN dizziness #21 tabs 12/21/18 azithromycin 250 mg tablet See Rx Instructions PO .COMPLEX #6 08/17/21 tabs azithromycin 250 mg tablet See Rx Instructions PO .COMPLEX 05/03/22 Pharyngitis #6 tabs dexamethasone 0.5 mg/5 mL oral 0.5 mg (5 mL) PO TID Aphthous 05/03/22 solution sores #240 mL acyclovir 800 mg tablet 800 mg PO BID 5 days #10 tabs 05/07/22 Allergies Allergy/AdvReac Type Severity Reaction Status Date / Time amoxicillin Allergy Intermediate Hives Verified 05/07/22 15:43 Sulfa (Sulfonamide Allergy Intermediate Hive Verified 05/07/22 15:43 Antibiotics) latex Allergy Verified 05/07/22 15:43 Penicillins Allergy Verified 05/07/22 15:43 Review of Systems Constitutional Constitutional: Reports system reviewed and no additional complaints, except as documented ENT Ears, Nose, Mouth, and Throat: Reports system reviewed and no additional complaints, except as documented Integumentary/Breasts Skin/Breast: Reports system reviewed and no additional complaints, except as documented Neurologic Neurologic: Reports system reviewed and no additional complaints, except as documented Patient History Medical History Healthy adult Surgical History No pertinent past surgical history Social History household members: children Smoking Status: Never smoker alcohol intake: never Smoking Status: Never smoker alcohol intake frequency: holidays/special occasions only Substance Use Type: does not use Exam Initial Vital Signs Initial Vital Signs: Vital Signs Temperature 98.1 F 05/07/22 15:43 Pulse Rate 95 H 05/07/22 15:43 Respiratory Rate 15 05/07/22 15:43 Blood Pressure 118/71 05/07/22 15:43 Pulse Oximetry 97 05/07/22 15:43 Oxygen Delivery Method 05/07/22 15:43 Const General: cooperative HENMT Head: normal to inspection Face and sinus: normal facial exam Mouth: other (Vesicular lesions around her mouth.) Teeth and gingiva: fair dentition Throat: other (Vesicular lesions posterior oropharynx) Resp Effort & Inspection: normal respiratory effort Skin General: no rashes or lesions noted Neuro General: patient alert, patient awake and moves all extremities Course Orders Ordered: ED Orders 05/07/22 16:30 Ictotest Urine Stat Urine Culture Stat Urine Microscopic Stat Discontinued Medications Acyclovir (Acyclovir 400 Mg Tablet) 800 mg PO NOW ONE Stop: 05/07/22 20:46 Last Admin: 05/07/22 20:45 Dose: 800 mg Documented By: AT Vital Signs Vital signs: Vital Signs - 8 hr 05/07/22 19:30 05/07/22 20:00 05/07/22 20:19 Temperature 99.1 F Pulse Rate 85 87 95 H Respiratory Rate 18 Blood Pressure 122/71 117/71 Pulse Oximetry 99 98 98 Oxygen Delivery Method Room Air Room Air 05/07/22 20:30 05/07/22 20:30 Temperature Pulse Rate 90 Respiratory Rate 16 Blood Pressure 116/70 Pulse Oximetry 98 Oxygen Delivery Method Room Air Medical Decision Making Differential Diagnosis Differential Diagnosis: Peritonsillar abscess, retropharyngeal abscess, strep throat, thrush, denta Lab Data Lab results reviewed: Yes I reviewed the patient's lab results. Labs: Lab Results 05/07/22 Range/Units 16:30 Ur Bilirubin Confirm Negative (Negative) Urine RBC 30-100/hpf H (0-5/HPF) Urine WBC 5-10/hpf H (0-5/HPF) Ur Squamous Epith Cells 1-5 /hpf (0-5/HPF) Urine Bacteria None seen (None) Ur Culture Indicated? Specimen cultured Point of Care Testing Test Results Negative Urine Dip Bedside Urine Glucose Negative Bedside Urine Bilirubin + 1 Bedside Urine Ketone +++ 80 Urine Specific [place] 1.030 Bedside Urine Occult Blood +++ Bedside Urine pH 6.0 Bedside Urine Protein + 30 Bedside Urine Urobilinogen - Negative Bedside Urine Nitrite - Negative Bedside Urine Leukocytes +/- 15 Esterase Point of care testing: Point of Care Testing Test Results Negative Urine Dip Bedside Urine Glucose Negative Bedside Urine Bilirubin + 1 Bedside Urine Ketone +++ 80 Urine Specific [place] 1.030 Bedside Urine Occult Blood +++ Bedside Urine pH 6.0 Bedside Urine Protein + 30 Bedside Urine Urobilinogen - Negative Bedside Urine Nitrite - Negative Bedside Urine Leukocytes +/- 15 Esterase MDM Narrative Medical decision making narrative: Patient does have lesions around her mouth that are vesicular in origin and have the appearance of herpes infection. Patient does have a history of cold sores. She thought that she did have sores around her mouth when these symptoms started. No respiratory distress. Is well hydrated. Had a long discussion with her regarding the herpes infection. She has had symptoms for approximately 1 week however given the nature of it and the location will start her on acyclovir. She was given a dose here and a prescription was sent to the pharmacy of her choice. She was given return precautions. She expressed understanding and agreement. Discharge Plan Departure Patient Disposition: Home Clinical Impression: Herpes Instructions: DI for Cold Sores Activity Restrictions/Additional Instructions: Take the medications as directed. I do recommend you contact your primary doctor for a follow-up. Return to the emergency department for any new symptoms. Prescriptions: New acyclovir 800 mg tablet 800 mg PO BID 5 Days Qty: 10 0RF No Action meclizine 25 mg tablet 25 mg PO TID PRN (Reason: dizziness) Qty: 21 0RF azithromycin 250 mg tablet See Rx Instructions .ROUTE .COMPLEX Qty: 6 0RF Rx Instructions: For 250 mg dose pack: take 500 mg today (day 1), then 250 mg for 4 days (days 2-5) dexamethasone 0.5 mg/5 mL solution 0.5 mg PO TID Qty: 240 0RF azithromycin 250 mg tablet See Rx Instructions .ROUTE .COMPLEX Qty: 6 0RF Rx Instructions: For 250 mg dose pack: take 500 mg today (day 1), then 250 mg for 4 days (days 2-5) Referrals: Lyudmila Nettles PA-C [Primary Care Provider] - Stand Alone Forms: Patient Portal/API
[2022-05-07 20:30] VITALS: BP 116/70; PULSE 90; RESP 16; O2SAT 98
[2022-05-07] MEDS: ACYCLOVIR 400 MG TABLET 800 MG PO (20:45)
== END 2022-05-07 20:50 | disposition home or self-care (01) ==
PROVIDERS: Emergency Medicine; Emergency Provider Emergency Medicine; PCP Physician Assistant
DX: B00.9 Herpesviral infection, unspecified (principal)
CPT/HCPCS: 81003; 81015; 81025; 87086; 99283

== ENCOUNTER → 2024-05-10 08:17 | Outpatient (CLI) | payer BC, SELFPAY ==
[2020-08-07 04:39] VITALS: BMI 26.5
[2024-05-10 08:57] LABS: Hematocrit 34.2 % (36-46); Mean Corpuscular HGB Conc 32.1 % (30-36); Mean Corpuscular Hemoglobin 26.1 PG (26-34); Mean Corpuscular Volume 81.4 fL (80-100); Platelet Count 450 X10^3/uL (150-400); Red Blood Cell Count 4.21 X10^6/uL (4.0-5.2); Red Cell Distribution Width 16.2 % (11.6-14.8)
[2024-05-10 09:10] LABS: Alanine Aminotransferase 18 IU/L (<35); Albumin 4.7 g/dL (3.5-5.0); Albumin Globulin Ratio 1.8 (1.0-2.8); Alkaline Phosphatase 32 U/L (38-126); Aspartate Aminotransferase 27 IU/L (14-36); BUN Creatinine Ratio 16.7 (6-22); Bilirubin Total 0.3 mg/dL (0.2-1.3); Blood Urea Nitrogen 12 mg/dL (7-17); Calcium 9.4 mg/dL (8.4-10.2); Carbon Dioxide 24 mmol/L (22-32); Chloride 106 mmol/L (98-107); Cholesterol 169 mg/dL (140-199); Estimated Glomerular Filt Rate > 60 mL/min (>60); Globulin 2.6 g/dL (1.7-4.1); Glucose 94 mg/dL (70-100); HDL Cholesterol 74 mg/dL (40-60); HEMOLYSIS < 15 (0-50); LDL Cholesterol Calculated 75 mg/dL (<100); Potassium 4.7 mmol/L (3.4-5.1); Sodium 139 mmol/L (137-145); Total Protein 7.3 g/dL (6.3-8.2); Triglycerides 98 mg/dL (35-150)
== END ==
PROVIDERS: PCP Family Medicine; Referring Provider Family Medicine; Visit Provider Family Medicine
DX: Z13.9 Encounter for screening, unspecified (principal)
CPT/HCPCS: 36415; 80053; 80061; 85027

== ENCOUNTER 2024-07-20 11:39 | Emergency (ER) | payer BC, SELFPAY ==
[2020-08-07 04:39] VITALS: BMI 26.5
[2024-07-20] VITALS (8 sets, daily range): BP systolic 122–140; BP diastolic 72–80; PULSE 61–82; RESP 12–18; TEMP 36.5; O2SAT 97–100; BMI 26.1
--- NOTE | 2024-07-20 11:49 | EKG_ITS ---
[address] [address] Test Date: 2024-07-20 Pat Name: Salina King Department: Room: Gender: Female [employer]: RACQUEL : 1990 Requested By: Order Number: [id number] Reading MD: Kevin Andrade Measurements Intervals [place] Rate: 66 P: 5 SD: 130 QRS: 58 QRSD: 84 T: 13 QT: 404 QTc: 423 Interpretive Statements Normal sinus rhythm with sinus arrhythmia Electronically Signed On 07-25-2024 20:08:33 PDT by Kevin Andrade
--- NOTE | 2024-07-20 11:50 | ED.CHESTPAIN ---
HPI - Chest Pain General Chief Complaint: Chest Pain Stated Complaint: Mild chest pain , light headed fast heart beat Time Seen by Provider: 07/20/24 11:50 History of Present Illness HPI narrative: 33-year-old female without history of prior chest pain problems, no blood clots known to legs or lungs, no leg pain or swelling symptoms, no history of asthma, complains of chest discomfort this morning with some associated dizziness. No recent fevers or chills or nasal congestion or cough. Denies sensation of shortness of breath. No treatments tried. Related Data Previous Rx's Medication Instructions Recorded omeprazole 20 mg capsule,delayed 20 mg PO DAILY upper abdominal 07/20/24 release pain 30 days #30 caps Allergies Allergy/AdvReac Type Severity Reaction Status Date / Time amoxicillin Allergy Intermediate Hives Verified 05/03/24 10:52 Sulfa (Sulfonamide Allergy Intermediate Hive Verified 05/03/24 10:52 Antibiotics) latex Allergy Verified 05/03/24 10:52 Penicillins Allergy Verified 05/03/24 10:52 Patient History Medical History (Updated 07/20/24 @ 13:41 by Omega Spaulding MD) COVID-19 virus infection Hemorrhagic ovarian cyst Social History marital status: unmarried,single number of children: 1 household members: children lives independently: Yes 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 HEAD: Atraumatic. Normocephalic. EYES: Pupils equal round and reactive. Extraocular motions intact. No scleral icterus. No injection or drainage. ENT: Nose without bleeding, purulent drainage. Throat without erythema, tonsillar hypertrophy or exudate. Airway patent. NECK: Trachea midline. Non tender CARDIOVASCULAR: Regular rate and rhythm without murmurs, gallops, or rubs. RESPIRATORY: Clear to auscultation. Breath sounds equal bilaterally. No wheezes, rales, or rhonchi. GASTROINTESTINAL: Abdomen soft, non-tender, nondistended. EXTREMITIES: No edema or joint tenderness. BACK: Nontender without deformity or crepitance. No flank tenderness. NEURO: AOx3. Motor functions grossly nonfocal SKIN: No rash or erythema of visible areas Initial Vital Signs Initial Vital Signs: Vital Signs Temperature 97.7 F 07/20/24 11:45 Pulse Rate 82 07/20/24 11:45 Respiratory Rate 16 07/20/24 11:45 Blood Pressure 140/80 07/20/24 11:45 Pulse Oximetry 97 07/20/24 11:45 Oxygen Delivery Method Room Air 07/20/24 11:45 Scores PERC Score Age greater than or equal to 50 years: No Heart rate greater than or equal to 100 bpm: No Room Air O2 Sat less than 95%: No Unilateral leg swelling: No Recent trauma or surgery: No Hemoptysis: No Prior PE or DVT: No Hormone Use: No Total PERC Score: 0 Course Orders Ordered: ED Orders 07/20/24 11:49 XR chest 1V Stat EKG-12 Lead Stat 07/20/24 11:50 Complete Blood Count AUTO DIFF Stat Comprehensive Metabolic Panel Stat Lipase Stat Magnesium Stat NT-proBNP (BNP-Adult 18+) Stat PTT Partial Thromboplastin Richard Stat Prothrombin Time INR Stat Troponin & CK Cardiac Panel Stat Discontinued Medications Al Hydrox/Mg Hydrox/Simethicone (Mag Hydrox/Alum/Simeth 30 Ml Udc) 30 ml PO NOW ONE Stop: 07/20/24 13:21 Last Admin: 07/20/24 13:53 Dose: 30 ml Documented By: JACEY Famotidine (Famotidine 20 Mg/2 Ml Vial) 20 mg IV NOW ESMRE Last Admin: 07/20/24 13:53 Dose: 20 mg Documented By: JACEY Vital Signs Vital signs: Vital Signs - 8 hr 07/20/24 13:00 07/20/24 13:30 07/20/24 13:47 Pulse Rate 61 64 65 Respiratory Rate 14 17 17 Blood Pressure Pulse Oximetry 99 99 100 07/20/24 13:47 07/20/24 14:00 Pulse Rate 68 Respiratory Rate 18 Blood Pressure 122/72 Pulse Oximetry 98 MDM - Chest Pain Lab Data Attestation: I reviewed the patient's lab results. Lab results narrative: White blood cell count 7800, hemoglobin 11.3, platelets adequate. Basic metabolic panel unremarkable. Liver functions normal. Lipase normal. Troponin negative/unmeasurable. 07/20/24 11:50 07/20/24 11:50 Labs: Lab Results 04/10/25 Range/Units 11:50 WBC 7.8 (4.5-11.0) X10^3/uL RBC 4.28 (4.0-5.2) X10^6/uL Hgb 11.3 L (12.0-16.0) g/dL Hct 34.6 L (36-46) % MCV 80.7 (80-100) fL MCH 26.3 (26-34) PG MCHC 32.6 (30-36) % RDW 15.2 H (11.6-14.8) % Plt Count 428 H (150-400) X10^3/uL Neut % (Auto) 55.5 (50-75) % Lymph % (Auto) 32.6 (25-40) % [place] % (Auto) 9.0 (3-14) % Eos % (Auto) 2.1 (2-4) % Baso % (Auto) 0.8 (0-2) % Neut # (Auto) 4300 (2115-9072) /uL Lymph # (Auto) 2500 (1726-2698) /uL [place] # (Auto) 700 (0-900) /uL Eos # (Auto) 200 (0-450) /uL Baso # (Auto) 100 (0-100) /uL PT 11.4 (9.4-12.5) SECONDS INR 1.0 (0.9-1.3) APTT 34 (25.1-36.5) SECONDS Sodium 135 L (137-145) mmol/L Potassium 3.9 (3.4-5.1) mmol/L Chloride 102 (98-107) mmol/L Carbon Dioxide 25 (22-32) mmol/L BUN 14 (7-17) mg/dL Creatinine 0.63 (0.52-1.04) mg/dL Estimated GFR > 60 (>60) mL/min BUN/Creatinine Ratio 22.2 H (6-22) Glucose 96 (70-100) mg/dL Calcium 9.1 (8.4-10.2) mg/dL Magnesium 1.7 (1.6-2.3) mg/dL Total Bilirubin 0.8 (0.2-1.3) mg/dL AST 28 (14-36) IU/L ALT 18 (<35) IU/L Alkaline Phosphatase 42 (38-126) U/L Total Creatine Kinase 67 (30-135) U/L Troponin I < 0.012 (0.01-0.034) ng/mL NT-Pro-B Natriuret Pep 26 (<125) pg/mL Total Protein 7.1 (6.3-8.2) g/dL Albumin 4.4 (3.5-5.0) g/dL Globulin 2.7 (1.7-4.1) g/dL Albumin/Globulin Ratio 1.6 (1.0-2.8) Lipase 132 (23-300) U/L Imaging Data Chest x-ray: Radiologist's Impression: Close Chest X-Ray (Signed) Dave Alcaraz - 07/20/24 Launch?Image [address] [address] XRay Report Signed Patient: Salina King MR#: [id number] : 1990 Acct:[id number] Age/Sex: 33 / F Date of Service: 07/20/24 Loc: ED Accession Number: [id number] Procedure: XR chest 1V Ordering Provider: Omega Spaulding MD PROCEDURE: XR CHEST 1V INDICATIONS: chest pain TECHNIQUE: One view of the chest was acquired. COMPARISON: [facility], , XR CHEST 2V, 05/04/2022, 13:55. FINDINGS: Surgical changes and devices: None. Lungs and pleura: Lungs are clear. No pleural effusions or pneumothorax. Mediastinum: Mediastinal contours appear normal. Heart size is normal. Bones and chest wall: No suspicious bony lesions. Overlying soft tissues appear unremarkable. IMPRESSION: No acute cardiopulmonary abnormality is seen. Approved by: Dave Alcaraz M.D. on 07/20/2024 at 12:43 ECG Data Attestation: I personally reviewed and interpreted this ECG as follows: Interpretation: Normal sinus rhythm with rate of 66, no obvious ST segment elevation or depression changes. T-wave inversion lead 3 but upright another contiguous inferior leads. OK 130, QRS 84, QTC 423. [facility] Narrative Medical decision making narrative: 33-year-old female without any history of cardiac problems, no previous chest pains, complains of anterior chest lower middle discomfort nonradiating, no fevers or chills or cough, some associated dizziness without spinning. No focal weakness. EKG and labs and chest x-ray pending. HCG pending. Laboratory studies negative including white blood cell count, hemoglobin, lipase, liver functions. HEART Score 0, PERC Score 0 DC home, trial PPI, further workup as outpatient for now. Rx omeprazole sent to her pharmacy. Home with family. Return precautions discussed. Discharge Plan Departure Patient Disposition: Home Clinical Impression: Chest pain, Epigastric abdominal pain, Dizziness Activity Restrictions/Additional Instructions: Chest discomfort and lower with upper epigastrium abdominal discomfort, associated dizziness, of unclear cause. EKG and blood testing and chest x-ray did not show any abnormalities. Unclear cause of your symptoms. Trial of omeprazole for now, prescription sent to your pharmacy. Recheck early next week with your regular doctor for further workup if not improved. Return to this/nearest emergency department for any change worsening symptoms or any concerns prior. Prescriptions: New omeprazole 20 mg capsule,delayed release(DR/EC) 20 mg PO DAILY 30 Days Qty: 30 0RF Referrals: Go Correia MD [Primary Care Provider] - Stand Alone Forms: Patient Portal/API/Survey, Work Release Note
[2024-07-20 11:56] LABS: Add Manual Diff / Slide Review NO; Basophils Absolute Auto 100 /uL (0-100); Basophils Percent Auto 0.8 % (0-2); Eosinophils Absolute Auto 200 /uL (0-450); Eosinophils Percent Auto 2.1 % (2-4); Hematocrit 34.6 % (36-46); Hemoglobin 11.3 g/dL (12.0-16.0); Lymphocytes Absolute Auto 2500 /uL (1100-4500); Lymphocytes Percent Auto 32.6 % (25-40); Mean Corpuscular HGB Conc 32.6 % (30-36); Mean Corpuscular Hemoglobin 26.3 PG (26-34); Mean Corpuscular Volume 80.7 fL (80-100); Monocytes Absolute Auto 700 /uL (0-900); Neutrophils Absolute Auto 4300 /uL (1500-7000); Neutrophils Percent Auto 55.5 % (50-75); Platelet Count 428 X10^3/uL (150-400); Red Blood Cell Count 4.28 X10^6/uL (4.0-5.2); Red Cell Distribution Width 15.2 % (11.6-14.8); White Blood Cell Count 7.8 X10^3/uL (4.5-11.0)
[2024-07-20 12:03] LABS: Prothrombin Time 11.4 SECONDS (9.4-12.5)
[2024-07-20 12:06] LABS: PTT Partial Thromboplastin Tim 34 SECONDS (25.1-36.5)
[2024-07-20 12:14] LABS: Alanine Aminotransferase 18 IU/L (<35); Albumin 4.4 g/dL (3.5-5.0); Albumin Globulin Ratio 1.6 (1.0-2.8); Alkaline Phosphatase 42 U/L (38-126); Aspartate Aminotransferase 28 IU/L (14-36); BUN Creatinine Ratio 22.2 (6-22); Bilirubin Total 0.8 mg/dL (0.2-1.3); Blood Urea Nitrogen 14 mg/dL (7-17); Calcium 9.1 mg/dL (8.4-10.2); Carbon Dioxide 25 mmol/L (22-32); Chloride 102 mmol/L (98-107); Creatine Kinase 67 U/L (30-135); Estimated Glomerular Filt Rate > 60 mL/min (>60); Globulin 2.7 g/dL (1.7-4.1); Glucose 96 mg/dL (70-100); HEMOLYSIS < 15 (0-50); Lipase 132 U/L (23-300); Magnesium 1.7 mg/dL (1.6-2.3); Potassium 3.9 mmol/L (3.4-5.1); Sodium 135 mmol/L (137-145); Total Protein 7.1 g/dL (6.3-8.2)
[2024-07-20 12:26] LABS: NT-proBNP (BNP-Adult 18+) 26 pg/mL (<125); Troponin I < 0.012 ng/mL (0.01-0.034)
[2024-07-20] MEDS: FAMOTIDINE 20 MG/2 ML VIAL IV (13:53)
[2024-07-20] MEDS: MAG HYDROX/ALUM/SIMETH 30 ML UDC PO (13:53)
== END 2024-07-20 14:06 | disposition home or self-care (01) ==
PROVIDERS: Emergency Provider Emergency Medicine; PCP Family Medicine
DX: R07.9 Chest pain, unspecified (principal); R10.13 Epigastric pain; R42 Dizziness and giddiness
CPT/HCPCS: 36415; 71045; 80053; 82550; 83690; 83735; 83880; 84484; 85025; 85610; 85730; 93005; 96374; 99284

== ENCOUNTER → 2024-10-04 10:54 | Outpatient (CLI) | payer BC, SELFPAY ==
[2020-08-07 04:39] VITALS: BMI 26.5
== END ==
LOC: CAR 10:55
PROVIDERS: PCP Family Medicine; Referring Provider Family Medicine; Visit Provider Family Medicine
DX: R00.2 Palpitations (principal)
CPT/HCPCS: 93246